=== PATIENT | male | born 1970 | race Caucasian/White ===

== ENCOUNTER 2017-10-15 22:21 | Emergency (ER) | payer MEDICARE, MEDICAID ==
[~2017-10-15] VITALS: Ht 190.5 cm; Wt 117.9 kg
[~2017-10-15 22:21] MED LIST: ALB6.7R INH; ALBU8.5H12 IH; AMOX-362 PO; ANTI10DR13 OT; AZIT500T47 PO; CARI-1 PO; CEFU500T10 PO; CEPH500T7 PO; CIPR-214 PO; CIPR-344 PO; CIPR-345 PO; DIA10 PO; DOCU-416 PO; FURO20TA19 PO; HYDR-4228 PO; HYDR-4309 PO; IBUP800T37 PO; LEVO-85 PO; LISI-346 PO; LISI-362 PO; LISI5TAB25 PO; LOR5/325 PO; METR-1 PO; METR-160 PO; NIT4 SL; ONDA4TAB PO; ONDA4TAB9 PO; ONDA8TAB94 PO; OXYC-865 PO; OXYC-869 PO; PANT40TA65 PO; PER PO; PRED20TA6 PO; PROM-110 PO; SERT25TA87 PO; SIMV-49 PO; TRAM-420 PO
--- NOTE | 2017-10-15 22:32 | ER Report ---
History and Physical Time Seen By MD: 22:32 Hx. of Stated Complaint: patient fell around 3 am this morning and around 4 he started vomited; last time was 2 hours ago HPI/ROS CHIEF COMPLAINT: Ankle injury HISTORY OF PRESENT ILLNESS: This is a 47-year-old male. Earlier this morning he rolled his ankle. He is having swelling and pain lateral foot and ankle with radiation up into his calf. He has been bearing weight but with pain. Pain became worse today and did cause him to vomit a couple of times. No nausea at this time. Has normal sensation and can move the foot and ankle but it does cause increased pain. He does have a prior ankle injury which was in the process of healing which is likely been exacerbated with this injury. REVIEW OF SYSTEMS: No shortness of breath or chest pains. No problems with bowels or bladder function. Allergies: Coded Allergies: metoprolol (Verified Allergy, Mild, Hives, 07/30/17) green tea (Verified Allergy, Unknown, 07/30/17) Home Meds Active Scripts Hydrocodone Bit/Acetaminophen (HYDROCODON-ACETAMINOPHEN 5-325) 1 Each Tablet, 1 EACH PO Q4H Y for PAIN, #6 TAB 0 Refills Prov:ALBERTO ALVAREZ MD 10/15/17 Albuterol Sulfate (PROVENTIL HFA) 6.7 Gm Inh, 2 PUFF INH Q4-6H Y for WHEEZING, # 1 INH 1 Refill Prov:THEO RAI MD 05/25/17 Lisinopril (LISINOPRIL) 5 Mg Tablet, 5 MG PO QDAY, #30 TAB 1 Refill Prov:THEO RAI MD 05/25/17 Reviewed Nurses Notes: Yes Hx Smoking: Yes (1/2PPD) Smoking Status: Current: Every Day Smoker Exposure to Second Hand Smoke?: Yes Hx Substance Use Disorder: No Hx Alcohol Use: Yes Constitutional Vital Sign - Last 24 Hours 10/15/17 10/15/17 10/15/17 10/15/17 22:23 22:25 22:30 22:51 Temp 98.7 Pulse 89 86 Resp 18 B/P (MAP) 132/111 (118) 132/111 106/61 (76) Pulse Ox 96 95 O2 Delivery Room Air 10/15/17 10/15/17 10/15/17 23:00 23:21 23:36 Pulse 81 95 Resp 16 B/P (MAP) 122/84 (97) 126/75 (92) Pulse Ox 95 92 O2 Delivery Room Air Physical Exam General appearance: Patient is alert. No acute distress. Musculoskeletal: Left foot and ankle shows mild lateral swelling. There is no obvious deformity. No bruising. Medial malleolus is non-tender. Lateral malleolus is tender to palpation. Head of the fifth metatarsal is also mildly tender to palpation. No tenderness over the calcaneus. There is some tenderness in the midfoot. Achilles tendon is nontender. No tenderness with squeeze of the lower leg. Weight bearing: Weight bearing not tested due to pain. Neurologic: The patient has normal sensation distal to the injury. Active range of motion is intact, but with pain. Cardiovascular: Normal dorsalis pedis and posterior tibialis pulses. Normal capillary refill. Skin: No rash. No skin breakdown. DIFFERENTIAL DIAGNOSIS: After history and physical exam differential diagnosis was considered for ankle and foot injury including sprain, fracture, dislocation and soft tissue injury. Medical Decision Making EKG/Imaging Imaging LEFT ANKLE: Indication: Injury. Technique: 3 views were obtained. Comparison: None. Findings: There is no evidence of fracture, subluxation, or other acute deformity. There is mild spur formation on the medial and lateral malleoli. There is uniform mineralization of the bony structures. There is mild soft tissue swelling over the lateral malleolus. IMPRESSION: Mild soft tissue swelling. No evidence of fracture or acute skeletal deformity. Report Dictated By: Waylon Easton MD at 10/15/2017 11:16 PM LEFT FOOT: Indication: Injury. Technique: 3 views were obtained. Comparison: None. Findings: There is no evidence of fracture, dislocation, or other acute deformity. There are mild degenerative changes in the mid foot and first MTP joint. There is a small spur on the calcaneus. There is uniform mineralization of the skeletal structures. No soft tissue abnormalities are identified. IMPRESSION: No acute deformity. Report Dictated By: Waylon Easton MD at 10/15/2017 11:19 PM ED Course/Re-evaluation ED Course Reviewed the imaging results with the patient and discussed conservative management of ankle sprain. Decision to Disposition Date: Oct 15, 2017 Decision to Disposition Time: 23:29 Depart Departure Latest Vital Signs Vital Signs Date Time Temp Pulse Resp B/P (MAP) Pulse Ox O2 Delivery O2 Flow Rate FiO2 10/15/17 23:36 95 16 126/75 (92) 92 Room Air 10/15/17 22:25 98.7 Impression: Primary Impression: Ankle sprain Condition: Improved Disposition: HOME OR SELF-CARE New Scripts Hydrocodone Bit/Acetaminophen (HYDROCODON-ACETAMINOPHEN 5-325) 1 Each Tablet 1 EACH PO Q4H Y for PAIN, #6 TAB 0 Refills Prov: ALBERTO ALVAREZ MD 10/15/17 Patient Instructions: Ankle Sprain (ED) Additional Instructions: Ibuprofen 200mg over the counter tablets, take 4 tablets three times a day with food. Lortab 5/325, one every 4 hours as needed for pain. Apply ice 20 minutes every 1-2 hours while awake. An LEANNE wrap can be used for compression to help reduce swelling. Rest the injured area, keep it elevated while at rest. Begin gentle range of motion exercises. Problem Qualifiers Primary Impression: Ankle sprain Encounter type: initial encounter Involved ligament of ankle: unspecified ligament Laterality: left Qualified Codes: S93.402A - Sprain of unspecified ligament of left ankle, initial encounter ALBERTO ALVAREZ MD Oct 15, 2017 22:32
[2017-10-15] MEDS ORDERED: APAP/HYDROCODONE 325/5 TAB PO ONE (22:55)
--- NOTE | 2017-10-15 23:22 | RADIOLOGY IMAGING REPORT ---
FACILITY: [facility] PATIENT NAME: Jaspreet Sosa : 1970 MR: [id number] V: [id number] EXAM DATE: ORDERING PHYSICIAN: ALBERTO ALVAREZ TECHNOLOGIST: Location: [facility] Patient: Jaspreet Sosa : 1970 Visit/Account:[id number] Date of Sevice: 10/15/2017 LEFT ANKLE: Indication: Injury. Technique: 3 views were obtained. Comparison: None. Findings: There is no evidence of fracture, subluxation, or other acute deformity. There is mild spur formation on the medial and lateral malleoli. There is uniform mineralization of the bony structures . There is mild soft tissue swelling over the lateral malleolus. IMPRESSION: Mild soft tissue swelling. No evidence of fracture or acute skeletal deformity. Report Dictated By: Waylon Easton MD at 10/15/2017 11:16 PM Report E-Signed By: Waylon Easton MD at 10/15/2017 11:19 PM [id number]
--- NOTE | 2017-10-15 23:24 | RADIOLOGY IMAGING REPORT ---
[place] [facility] [place] NAME: Jaspreet Sosa : 1970 MR: [id number] V: [id number] EXAM DATE: ORDERING PHYSICIAN: ALBERTO ALVAREZ TECHNOLOGIST: Location: [facility] Patient: Jaspreet Sosa : 1970 Visit/Account:[id number] Date of Sevice: 10/15/2017 LEFT FOOT: Indication: Injury. Technique: 3 views were obtained. Comparison: None. Findings: There is no evidence of fracture, dislocation, or other acute deformity. There are mild deg enerative changes in the mid foot and first MTP joint. There is a small spur on the calcaneus. There is uniform mineralization of the skeletal structures. No soft tissue abnormalities are identified. IMPRESSION: No acute deformity. Report Dictated By: Waylon Easton MD at 10/15/2017 11:19 PM Report E-Signed By: Waylon Easton MD at 10/15/2017 11:21 PM [id number]
[2017-10-15] MEDS ORDERED: LOR5/325 PO (23:30)
[2017-10-15 23:36] VITALS: BP 126/75
== END 2017-10-15 23:36 | disposition home or self-care (01) ==
LOC: ER 22:40
DX: S93.402A Sprain of unspecified ligament of left ankle, initial encounter (principal)
CPT/HCPCS: 73610; 73630; 99282; A9270

== ENCOUNTER 2018-01-13 08:58 | Emergency (ER) | payer MEDICARE, MEDICAID ==
--- NOTE | 2018-01-13 09:31 | ER Report ---
History and Physical Time Seen By MD: 09:15 Hx. of Stated Complaint: pt reports he fell in the yard twice rt to dizziness. pt reports shakiness and headache today HPI/ROS This is a 47-year-old male who presented to the emergency department with a chief complaint of feeling off balance and tremulous. He does drink alcohol daily. States he usually drinks 2-3 beers a day but earlier this week when on a "whiskey binge." He was working in his yard yesterday and felt so off balance that he fell onto his hands and his knees. He did not have any head trauma. He states he has an old closed head injury. Currently has a mild headache. He has not drink any alcohol in 2 days. No other complaints. He is supposed to be taking lisinopril, however he is not compliant with that medication. Does say that he did take it at 3:00 in the morning when he woke up and was feeling tremulous. Allergies: Coded Allergies: metoprolol (Verified Allergy, Mild, Hives, 01/13/18) green tea (Verified Allergy, Unknown, 01/13/18) Home Meds Active Scripts Albuterol Sulfate (PROVENTIL HFA) 6.7 Gm Inh, 2 PUFF INH Q4-6H Y for WHEEZING, # 1 INH 1 Refill Prov:THEO RAI MD 05/25/17 Lisinopril (LISINOPRIL) 5 Mg Tablet, 5 MG PO QDAY, #30 TAB 1 Refill Prov:THEO RAI MD 05/25/17 Discontinued Scripts Hydrocodone Bit/Acetaminophen (HYDROCODON-ACETAMINOPHEN 5-325) 1 Each Tablet, 1 EACH PO Q4H Y for PAIN, #6 TAB 0 Refills Prov:ALBERTO ALVAREZ MD 10/15/17 Reviewed Nurses Notes: Yes Old Medical Records Reviewed: Yes Hx Smoking: Yes (1/2PPD) Smoking Status: Current: Every Day Smoker Exposure to Second Hand Smoke?: Yes Hx Substance Use Disorder: No Hx Alcohol Use: Yes Constitutional Vital Sign - Last 24 Hours 01/13/18 01/13/18 01/13/18 01/13/18 09:00 09:03 09:03 09:05 Temp 98.2 Pulse 95 Resp 16 B/P (MAP) 180/127 203/139 (160) 180/127 (144) Pulse Ox 92 O2 Delivery Room Air O2 Flow Rate 1.0 01/13/18 01/13/18 01/13/18 01/13/18 09:08 09:18 09:28 09:30 Pulse 94 88 87 Resp 36 15 34 B/P (MAP) 163/111 (128) Pulse Ox 93 90 91 01/13/18 01/13/18 01/13/18 01/13/18 09:50 09:58 10:00 10:08 Pulse 88 92 Resp 78 B/P (MAP) 169/120 (136) 156/115 (129) Pulse Ox 89 84 01/13/18 01/13/18 01/13/18 01/13/18 10:13 10:28 10:30 10:35 Pulse 91 87 89 Resp 42 32 B/P (MAP) 162/113 (129) Pulse Ox 86 01/13/18 01/13/18 01/13/18 01/13/18 10:50 11:00 11:05 11:10 Pulse 85 87 87 B/P (MAP) 155/112 (126) 01/13/18 01/13/18 01/13/18 01/13/18 11:25 11:30 11:50 12:00 Pulse 84 81 B/P (MAP) 156/113 (127) 160/114 (129) 01/13/18 01/13/18 12:05 12:20 Pulse 90 84 Intake and Output 01/13/18 01/13/18 01/14/18 15:00 23:00 07:00 Intake Total 1000 ml Balance 1000 ml Physical Exam General Appearance: The patient is alert, has no immediate need for airway protection and no current signs of toxicity. Eyes: Pupils equal and round no injection. Respiratory: Chest is non tender, lungs are clear to auscultation. Cardiac: tachycardic, regular rhythm Gastrointestinal: Abdomen is soft and non tender, no masses, bowel sounds normal. Neck: Neck is supple and non tender. Extremities have full range of motion and are non tender. Skin: Multiple abrasions on his hands/knees at different stages of healing Neuro: tremulous throughout including tongue DIFFERENTIAL DIAGNOSIS: After history and physical exam differential diagnosis was considered for CHI, alcohol withdrawal, infection Medical Decision Making Data Points Result Diagram: 01/13/18 1000 01/13/18 1000 Laboratory Hematology Test 01/13/18 09:53 01/13/18 10:00 Urine Color Yellow Urine Clarity Clear Urine pH 7.0 pH (4.8-9.5) Urine Specific [place] 1.017 Urine Protein Negative mg/dL (NEGATIVE) Urine Glucose (UA) Negative mg/dL (NEGATIVE) Urine Ketones 20 mg/dL (NEGATIVE) Urine Blood Negative (NEGATIVE) Urine Nitrite Negative (NEGATIVE) Urine Bilirubin Negative (NEGATIVE) Urine Urobilinogen 2.0 mg/dL (0.2-1.9) Urine Leukocyte Esterase Negative (NEGATIVE) Urine RBC None /HPF (0-2/HPF) Urine WBC None /HPF (0-5/HPF) Urine Squamous Epithelial Cells None /LPF (</=FEW) Urine Bacteria Negative /HPF (NONE-FEW) Urine Mucus Few /HPF (NONE-FEW) Urine Opiates Screen Negative Urine Barbiturates Screen Negative Ur Tricyclic Antidepressants Screen Negative Urine Phencyclidine Screen Negative Urine Amphetamines Screen Negative Urine Benzodiazepines Screen Negative Urine Cocaine Screen Negative Urine Cannabinoids Screen Positive Red Blood Count 5.24 M/uL (4.00-5.60) Mean Corpuscular Volume 99.8 fL (80.0-96.0) Mean Corpuscular Hemoglobin 34.7 pg (26.0-33.0) Mean Corpuscular Hemoglobin Concent 34.8 g/dL (32.0-36.0) Red Cell Distribution Width 14.2 % (11.5-14.5) Mean Platelet Volume 8.1 fL (7.2-11.1) Neutrophils (%) (Auto) 78.9 % (39.4-72.5) Lymphocytes (%) (Auto) 8.4 % (17.6-49.6) Monocytes (%) (Auto) 11.4 % (4.1-12.4) Eosinophils (%) (Auto) 0.8 % (0.4-6.7) Basophils (%) (Auto) 0.5 % (0.3-1.4) Nucleated RBC Relative Count (auto) 0.1 /100WBC Neutrophils # (Auto) 6.3 K/uL (2.0-7.4) Lymphocytes # (Auto) 0.7 K/uL (1.3-3.6) Monocytes # (Auto) 0.9 K/uL (0.3-1.0) Eosinophils # (Auto) 0.1 K/uL (0.0-0.5) Basophils # (Auto) 0.0 K/uL (0.0-0.1) Nucleated RBC Absolute Count (auto) 0.01 K/uL Sodium Level 137 mmol/L (137-145) Potassium Level 3.7 mmol/L (3.5-5.0) Chloride Level 100 mmol/L (98-107) Carbon Dioxide Level 25 mmol/L (22-30) Blood Urea Nitrogen 7 mg/dl (9-21) Creatinine 0.80 mg/dl (0.66-1.25) Glomerular Filtration Rate Calc > 60.0 Random Glucose 109 mg/dl (75-110) Calcium Level 9.2 mg/dl (8.4-10.2) Magnesium Level 1.8 mg/dl (1.7-2.2) Total Bilirubin 1.4 mg/dl (0.2-1.3) Aspartate Amino Transf (AST/SGOT) 178 U/L (0-35) Alanine Aminotransferase (ALT/SGPT) 129 U/L (0-56) Alkaline Phosphatase 164 U/L (0-126) Ammonia < 9 UMOL/L (9-33) Troponin I < 0.012 ng/ml Total Protein 6.5 gm/dl (6.3-8.2) Albumin 4.1 g/dl (3.5-5.0) Lipase 232 U/L (23-300) Serum Alcohol < 10 mg/dl Chemistry Test 01/13/18 09:53 01/13/18 10:00 Urine Color Yellow Urine Clarity Clear Urine pH 7.0 pH (4.8-9.5) Urine Specific [place] 1.017 Urine Protein Negative mg/dL (NEGATIVE) Urine Glucose (UA) Negative mg/dL (NEGATIVE) Urine Ketones 20 mg/dL (NEGATIVE) Urine Blood Negative (NEGATIVE) Urine Nitrite Negative (NEGATIVE) Urine Bilirubin Negative (NEGATIVE) Urine Urobilinogen 2.0 mg/dL (0.2-1.9) Urine Leukocyte Esterase Negative (NEGATIVE) Urine RBC None /HPF (0-2/HPF) Urine WBC None /HPF (0-5/HPF) Urine Squamous Epithelial Cells None /LPF (</=FEW) Urine Bacteria Negative /HPF (NONE-FEW) Urine Mucus Few /HPF (NONE-FEW) Urine Opiates Screen Negative Urine Barbiturates Screen Negative Ur Tricyclic Antidepressants Screen Negative Urine Phencyclidine Screen Negative Urine Amphetamines Screen Negative Urine Benzodiazepines Screen Negative Urine Cocaine Screen Negative Urine Cannabinoids Screen Positive White Blood Count 8.0 k/uL (4.5-11.0) Red Blood Count 5.24 M/uL (4.00-5.60) Hemoglobin 18.2 g/dL (14.0-18.0) Hematocrit 52.3 % (42.0-52.0) Mean Corpuscular Volume 99.8 fL (80.0-96.0) Mean Corpuscular Hemoglobin 34.7 pg (26.0-33.0) Mean Corpuscular Hemoglobin Concent 34.8 g/dL (32.0-36.0) Red Cell Distribution Width 14.2 % (11.5-14.5) Platelet Count 133 K/uL (150-450) Mean Platelet Volume 8.1 fL (7.2-11.1) Neutrophils (%) (Auto) 78.9 % (39.4-72.5) Lymphocytes (%) (Auto) 8.4 % (17.6-49.6) Monocytes (%) (Auto) 11.4 % (4.1-12.4) Eosinophils (%) (Auto) 0.8 % (0.4-6.7) Basophils (%) (Auto) 0.5 % (0.3-1.4) Nucleated RBC Relative Count (auto) 0.1 /100WBC Neutrophils # (Auto) 6.3 K/uL (2.0-7.4) Lymphocytes # (Auto) 0.7 K/uL (1.3-3.6) Monocytes # (Auto) 0.9 K/uL (0.3-1.0) Eosinophils # (Auto) 0.1 K/uL (0.0-0.5) Basophils # (Auto) 0.0 K/uL (0.0-0.1) Nucleated RBC Absolute Count (auto) 0.01 K/uL Glomerular Filtration Rate Calc > 60.0 Calcium Level 9.2 mg/dl (8.4-10.2) Magnesium Level 1.8 mg/dl (1.7-2.2) Total Bilirubin 1.4 mg/dl (0.2-1.3) Aspartate Amino Transf (AST/SGOT) 178 U/L (0-35) Alanine Aminotransferase (ALT/SGPT) 129 U/L (0-56) Alkaline Phosphatase 164 U/L (0-126) Ammonia < 9 UMOL/L (9-33) Troponin I < 0.012 ng/ml Total Protein 6.5 gm/dl (6.3-8.2) Albumin 4.1 g/dl (3.5-5.0) Lipase 232 U/L (23-300) Serum Alcohol < 10 mg/dl Toxicology Test 01/13/18 09:53 01/13/18 10:00 Urine Opiates Screen Negative Urine Barbiturates Screen Negative Ur Tricyclic Antidepressants Screen Negative Urine Phencyclidine Screen Negative Urine Amphetamines Screen Negative Urine Benzodiazepines Screen Negative Urine Cocaine Screen Negative Urine Cannabinoids Screen Positive Serum Alcohol < 10 mg/dl Urinalysis Test 01/13/18 09:53 Urine Color Yellow Urine Clarity Clear Urine pH 7.0 pH (4.8-9.5) Urine Specific [place] 1.017 Urine Protein Negative mg/dL (NEGATIVE) Urine Glucose (UA) Negative mg/dL (NEGATIVE) Urine Ketones 20 mg/dL (NEGATIVE) Urine Blood Negative (NEGATIVE) Urine Nitrite Negative (NEGATIVE) Urine Bilirubin Negative (NEGATIVE) Urine Urobilinogen 2.0 mg/dL (0.2-1.9) Urine Leukocyte Esterase Negative (NEGATIVE) Urine RBC None /HPF (0-2/HPF) Urine WBC None /HPF (0-5/HPF) Urine Squamous Epithelial Cells None /LPF (</=FEW) Urine Bacteria Negative /HPF (NONE-FEW) Urine Mucus Few /HPF (NONE-FEW) EKG/Imaging Monitor Interpretation: Sinus Tachycardia ED Course/Re-evaluation Clinical Indication for ER IV: Hydration ED Course This is a 47-year-old male who presents to the ED feeling off balance, with 2 falls yesterday to his hands and knees, and feeling tremulous. He does admit to drinking alcohol daily, but I think he is minimizing the quantity of alcohol he drinks daily. He states that he did drink whiskey heavily earlier this week, and has not drink any alcohol in the past 36 hours. He has never had DTs. He fell onto his hands and knees twice yesterday, but given his alcohol history I obtained a CT scan of his head. No acute changes on his CT scan. He was given a banana bag, IV Ativan, and he Valium. His tremulous has markedly improved. He states that he feels much better and does not feel off balance any longer. Noted is significant transaminitis. He has no abdominal pain or tenderness to palpation. I discussed this with the patient, and told him that his elevated liver enzymes are likely a result of his heavy alcohol use. He does not think he needs inpatient alcohol detox at this time. I counseled him that he needs to seek treatment as an outpatient for his alcohol abuse. He voiced understanding. Decision to Disposition Date: January 13, 2018 Decision to Disposition Time: 13:11 Depart Departure Latest Vital Signs Vital Signs Date Time Temp Pulse Resp B/P (MAP) Pulse Ox O2 Delivery O2 Flow Rate FiO2 01/13/18 12:20 84 01/13/18 12:00 160/114 (129) 01/13/18 10:35 32 01/13/18 10:13 86 01/13/18 09:03 98.2 Room Air 01/13/18 09:00 1.0 Impression: Primary Impression: Alcohol withdrawal Condition: Improved Disposition: HOME OR SELF-CARE Patient Instructions: Alcohol Dependence (ED) Problem Qualifiers Primary Impression: Alcohol withdrawal Complication of substance-induced condition: with unspecified complication Qualified Codes: F10.239 - Alcohol dependence with withdrawal, unspecified LA VARGAS MD January 13, 2018 09:31
[2018-01-13] MEDS ORDERED: MULTIVITAMINS(*) 10 ML VIAL 10 ML, THIAMINE HCL(*) 200 MG/2 ML IN 100 MG, FOLIC ACID(*)... IV ONE (09:40)
[2018-01-13] MEDS ORDERED: LORazepam 2 MG/ML VIAL IVP ONE (09:40)
[2018-01-13] MEDS ORDERED: MAGNESIUM SUL 50% 1GM/2ML VIAL ONE (09:48)
[2018-01-13] MEDS ORDERED: THIAMINE HCL 200 MG/2 ML INJ ONE (09:48)
--- NOTE | 2018-01-13 09:58 | EKG ---
FACILITY: [facility] [place] PATIENT NAME: CHERYL URBAN : [id number] MR: [id number] V: [id number] EXAM DATE: ORDERING PHYSICIAN: LA VARGAS TECHNOLOGIST: CHUCHO Tavares Reason : ELECTROLYTE INBALENC Blood Pressure : / mmHG Vent. Rate : 090 BPM Atrial Rate : 090 BPM P-R Int : 164 ms QRS Dur : 098 ms QT Int : 360 ms P-R-T Axes : 054 -29 001 degrees QTc Int : 440 ms Normal sinus rhythm Possible Left atrial enlargement ST and T wave abnormality, consider anterior ischemia T flatteing consistent with inferior ischemia vs normal variant Relatively unchanged from previous Confirmed by SHELTON HOLGUIN ([id number]) on 01/13/2018 3:07:02 PM Referred By: SAM Confirmed By:SHELTON HOLGUIN
[2018-01-13] MEDS ORDERED: MULTIVITAMINS 10 ML VIAL IV ONE (10:01)
[2018-01-13 10:19] LABS: PLATELET COUNT, AUTOMATED 133 K/uL (150-450)
--- NOTE | 2018-01-13 10:55 | RADIOLOGY IMAGING REPORT ---
FACILITY: [facility] PATIENT NAME: Jaspreet Sosa : 1970 MR: [id number] V: [id number] EXAM DATE: ORDERING PHYSICIAN: AL VARGAS TECHNOLOGIST: Location: [facility] Patient: Jaspreet Sosa : 1970 Visit/Account:[id number] Date of Sevice: 01/13/2018 HEAD W/O CONTRAST Provided history: alcoholic with 2 falls yesterday and off balance Additional pertinent history: none TECHNIQUE: Imaging was obtained from the skull base through the vertex without intravenous contrast. Source images were reformatted in the coronal sagittal planes. One of the following dose optimization techniques was utilized in the performance of this exam: Autom ated exposure control; adjustment of the mA and/or kV according to the patient's size; or use of an i terative reconstruction technique. Specific details can be referenced in the facility's radiology CT exam operational policy. COMPARISON STUDIES: 02/29/16 FINDINGS: Brain volume: Normal Acute cortical ischemia: None Chronic cortical and ganglionic ischemia: none significant Hemorrhage: None Masses / edema: None White matter: Normal Vessels: Normal Extra-axial: None significant Calvarium / scalp: Negative Skull base: Absent air cell development of the right mastoid tip from old inflammatory disease. No acute middle ear disease. Visualized sinuses / orbits: Moderate mildly lobular mucosal thickening left axillary sinus is new f rom prior. Mild thickening in the right antrum is also new. No air-fluid levels. IMPRESSION: Normal CT of the brain. No evidence of mass, acute ischemia or hemorrhage. Paranasal sinus disease is progressive from last exam. No air-fluid levels. Report Dictated By: Waylon Cm MD at 01/13/2018 10:46 AM Report E-Signed By: Waylon Cm MD at 01/13/2018 10:50 AM WSN:[id number]
[2018-01-13 12:50] VITALS: BP 178/117
[2018-01-13] MEDS ORDERED: DIAZEPAM 5 MG TAB PO ONE (13:00)
== END 2018-01-13 13:15 | disposition home or self-care (01) ==
LOC: ER 08:58
DX: F10.239 Alcohol dependence with withdrawal, unspecified (principal); F17.210 Nicotine dependence, cigarettes, uncomplicated
CPT/HCPCS: 70450; 80305; 81001; 82140; 83690; 83735; 84484; 85025; 96365; 96375; 99284; A9270; G0480; J2060; J3411; J3475; J7030; 80320; 82040; 82247; 82310; 82374; 82435; 82565; 82947; 84075; 84132; 84155; 84295; 84450; 84460; 84520

== ENCOUNTER → 2018-04-23 | Outpatient (CLI) | payer MEDICARE | LOC: RESP 19:45 | PROVIDERS: ATTEND Nurse Practitioner Psychiatric/Mental Health | DX: G47.33 Obstructive sleep apnea (adult) (pediatric) (principal); G47.61 Periodic limb movement disorder; G47.36 Sleep related hypoventilation in conditions classified elsewhere ==

== ENCOUNTER → 2018-06-17 | Outpatient (CLI) | payer MEDICARE ==
[~2018-06-17] MED LIST changes: -HYDR-4309 PO; +HYDR-653 PO
== END ==
LOC: RESP 20:34
PROVIDERS: ATTEND Nurse Practitioner Psychiatric/Mental Health
DX: G47.33 Obstructive sleep apnea (adult) (pediatric) (principal); G47.36 Sleep related hypoventilation in conditions classified elsewhere; G47.61 Periodic limb movement disorder

== ENCOUNTER 2018-12-29 22:15 | Emergency (ER) | payer MEDICARE, MEDICAID ==
[~2018-12-29 22:15] MED LIST changes: -METR-160 PO; +METR500T15 PO
[2018-12-29] MEDS ORDERED: GABA-549 PO (22:22)
[2018-12-29] MEDS ORDERED: LISI-351 PO (22:22)
--- NOTE | 2018-12-29 22:29 | ER Report ---
History and Physical Time Seen By MD: 22:29 Hx. of Stated Complaint: PT REPORTS PAIN IN RIGHT CALF FOR LAST MONTH. PT REPORTS PAIN HAS GONE UP TO RIGHT THIGH AND GOTTEN INCREASINGLY WORSE LAST FEW DAY. HPI/ROS CHIEF COMPLAINT: right leg pain HISTORY OF PRESENT ILLNESS: This is a 48 year old male. He has been having some pain in the right leg, was in the calf, now up in thigh. No injury noted. Some mild swelling associated. No shortness of breath or cough. No history of blood clots in the past. Normal sensation. Allergies: Coded Allergies: metoprolol (Verified Allergy, Mild, Hives, 12/29/18) green tea (Verified Allergy, Unknown, 12/29/18) Home Meds Active Scripts Albuterol Sulfate (PROVENTIL HFA) 6.7 Gm Inh, 2 PUFF INH Q4-6H PRN for WHEEZING, #1 INH 1 Refill Prov:THEO RAI MD 05/25/17 Reported Medications Gabapentin (GABAPENTIN) 300 Mg Capsule, 300 MG PO HS, CAPSULE 12/29/18 Lisinopril/Hydrochlorothiazide (LISINOPRIL-HCTZ 10-12.5 MG TAB) 1 Each Tablet, 1 EACH PO QDAY 12/29/18 Discontinued Scripts Lisinopril (LISINOPRIL) 5 Mg Tablet, 5 MG PO QDAY, #30 TAB 1 Refill Prov:THEO RAI MD 05/25/17 Reviewed Nurses Notes: Yes Hx Smoking: Yes (1/2PPD) Smoking Status: Current: Every Day Smoker Exposure to Second Hand Smoke?: Yes Hx Substance Use Disorder: No Hx Alcohol Use: Yes Constitutional Vital Sign - Last 24 Hours 12/29/18 12/29/18 12/29/18 12/29/18 22:15 22:19 22:20 22:30 Temp 98.6 Pulse 100 86 90 Resp 18 B/P (MAP) 108/71 108/71 (83) 95/59 (71) Pulse Ox 92 88 88 O2 Delivery Room Air 12/29/18 12/29/18 12/30/18 12/30/18 23:00 23:30 00:00 00:30 B/P (MAP) 95/64 (74) 104/70 (81) 117/80 (92) 101/84 (90) 12/30/18 01:00 B/P (MAP) 111/76 (88) Intake and Output 12/29/18 12/29/18 12/30/18 14:59 22:59 06:59 Intake Total 1000 ml Balance 1000 ml Physical Exam General Appearance: Alert, no distress. Respiratory: Lungs are clear to auscultation. Cardiac: regular rate and rhythm, normal peripheral pulses and cap refill. Neuro: Normal sensation. Musculoskeletal: No pain in calf. No pain in thigh. Skin: No rashes or lesions. No warmth or redness of the skin noted. DIFFERENTIAL DIAGNOSIS: After history and physical exam differential diagnosis was considered for leg pain, will need to check for blood clots or infection. Medical Decision Making Data Points Result Diagram: 12/29/18225112/29/182251 Laboratory Hematology Test 12/29/18 22:52 Red Blood Count 4.48 M/uL (4.00-5.60) Mean Corpuscular Volume 101.5 fL (80.0-96.0) Mean Corpuscular Hemoglobin 34.7 pg (26.0-33.0) Mean Corpuscular Hemoglobin Concent 34.1 g/dL (32.0-36.0) Red Cell Distribution Width 14.9 % (11.5-14.5) Mean Platelet Volume 7.7 fL (7.2-11.1) Neutrophils (%) (Auto) 61.4 % (39.4-72.5) Lymphocytes (%) (Auto) 22.1 % (17.6-49.6) Monocytes (%) (Auto) 12.6 % (4.1-12.4) Eosinophils (%) (Auto) 3.3 % (0.4-6.7) Basophils (%) (Auto) 0.6 % (0.3-1.4) Nucleated RBC Relative Count (auto) 0.1 /100WBC Neutrophils # (Auto) 2.3 K/uL (2.0-7.4) Lymphocytes # (Auto) 0.8 K/uL (1.3-3.6) Monocytes # (Auto) 0.5 K/uL (0.3-1.0) Eosinophils # (Auto) 0.1 K/uL (0.0-0.5) Basophils # (Auto) 0.0 K/uL (0.0-0.1) Nucleated RBC Absolute Count (auto) 0.00 K/uL Erythrocyte Sedimentation Rate 1 mm/HOUR (0-15) Prothrombin Time 12.7 seconds (12.0-14.4) Prothromb Time International Ratio 0.95 Activated Partial Thromboplast Time 30 seconds (23-35) Sodium Level 130 mmol/L (137-145) Potassium Level 3.8 mmol/L (3.5-5.0) Chloride Level 91 mmol/L (98-107) Carbon Dioxide Level 29 mmol/L (22-30) Blood Urea Nitrogen 18 mg/dl (9-21) Creatinine 1.60 mg/dl (0.66-1.25) Glomerular Filtration Rate Calc 46.4 Random Glucose 96 mg/dl (75-110) Calcium Level 8.6 mg/dl (8.4-10.2) Total Bilirubin 0.8 mg/dl (0.2-1.3) Aspartate Amino Transf (AST/SGOT) 273 U/L (0-35) Alanine Aminotransferase (ALT/SGPT) 164 U/L (0-56) Alkaline Phosphatase 103 U/L (0-126) Total Protein 6.7 g/dl (6.3-8.2) Albumin 4.1 g/dl (3.5-5.0) Chemistry Test 12/29/18 22:52 White Blood Count 3.7 k/uL (4.5-11.0) Red Blood Count 4.48 M/uL (4.00-5.60) Hemoglobin 15.5 g/dL (14.0-18.0) Hematocrit 45.5 % (42.0-52.0) Mean Corpuscular Volume 101.5 fL (80.0-96.0) Mean Corpuscular Hemoglobin 34.7 pg (26.0-33.0) Mean Corpuscular Hemoglobin Concent 34.1 g/dL (32.0-36.0) Red Cell Distribution Width 14.9 % (11.5-14.5) Platelet Count 119 K/uL (150-450) Mean Platelet Volume 7.7 fL (7.2-11.1) Neutrophils (%) (Auto) 61.4 % (39.4-72.5) Lymphocytes (%) (Auto) 22.1 % (17.6-49.6) Monocytes (%) (Auto) 12.6 % (4.1-12.4) Eosinophils (%) (Auto) 3.3 % (0.4-6.7) Basophils (%) (Auto) 0.6 % (0.3-1.4) Nucleated RBC Relative Count (auto) 0.1 /100WBC Neutrophils # (Auto) 2.3 K/uL (2.0-7.4) Lymphocytes # (Auto) 0.8 K/uL (1.3-3.6) Monocytes # (Auto) 0.5 K/uL (0.3-1.0) Eosinophils # (Auto) 0.1 K/uL (0.0-0.5) Basophils # (Auto) 0.0 K/uL (0.0-0.1) Nucleated RBC Absolute Count (auto) 0.00 K/uL Erythrocyte Sedimentation Rate 1 mm/HOUR (0-15) Prothrombin Time 12.7 seconds (12.0-14.4) Prothromb Time International Ratio 0.95 Activated Partial Thromboplast Time 30 seconds (23-35) Glomerular Filtration Rate Calc 46.4 Calcium Level 8.6 mg/dl (8.4-10.2) Total Bilirubin 0.8 mg/dl (0.2-1.3) Aspartate Amino Transf (AST/SGOT) 273 U/L (0-35) Alanine Aminotransferase (ALT/SGPT) 164 U/L (0-56) Alkaline Phosphatase 103 U/L (0-126) Total Protein 6.7 g/dl (6.3-8.2) Albumin 4.1 g/dl (3.5-5.0) Coagulation Test 12/29/18 22:52 Prothrombin Time 12.7 seconds Prothromb Time International Ratio 0.95 Activated Partial Thromboplast Time 30 seconds EKG/Imaging Imaging US VENOUS LOWER EXT RT HISTORY: Right leg pain and swelling ADDITIONAL HISTORY: None. COMPARISON: None. FINDINGS: Grayscale, duplex and color Doppler interrogation of the right lower extremity deep veins from common femoral vein to proximal calf was completed. Common femoral vein: Negative. Femoral vein: Negative. Deep femoral vein: Negative. Popliteal vein: Negative. Visualized deep calf veins: Negative. Popliteal fossa: Negative. Greater saphenous vein in the proximal thigh: Negative. IMPRESSION: Negative for deep venous thrombosis within the right lower extremity Report Dictated By: Navneet Mustafa at 12/30/2018 12:26 AM ED Course/Re-evaluation Clinical Indication for ER IV: Hydration, IV Access ED Course Has mild hyponatremia and some dehydration. NS bolus given. Ultrasound negative. Decision to Disposition Date: December 30, 2018 Decision to Disposition Time: 00:39 Depart Departure Latest Vital Signs Vital Signs Date Time Temp Pulse Resp B/P (MAP) Pulse Ox O2 Delivery O2 Flow Rate FiO2 12/30/18 01:00 111/76 (88) 12/29/18 22:30 90 88 12/29/18 22:19 98.6 18 Room Air Impression: Primary Impression: Right leg pain Additional Impressions: Hyponatremia Dehydration Elevated liver enzymes Condition: Improved Disposition: HOME OR SELF-CARE Patient Instructions: Hyponatremia (ED), Musculoskeletal Pain (ED) Additional Instructions: You were a little dehydrated and sodium was a little low. The IV fluids given tonight should help with this. We recommend increasing fluid intake. Liver enzymes are still a little elevated and you should follow-up with your regular doctor to monitor this. No signs of blood clots in the leg. If pain persists, follow-up with primary care or with orthopedic surgery for further evaluation. Problem Qualifiers ALBERTO ALVAREZ MD December 29, 2018 22:29
[2018-12-29 23:03] LABS: PLATELET COUNT, AUTOMATED 119 K/uL (150-450)
[2018-12-29 23:20] LABS: INR 0.95
--- NOTE | 2018-12-30 00:30 | RADIOLOGY IMAGING REPORT ---
FAC[facility]: [facility] PATIENT NAME: Jaspreet Sosa : 1970 MR: [id number] V: [id number] EXAM DATE: ORDERING PHYSICIAN: ALBERTO ALVAREZ TECHNOLOGIST: Location: [facility] Patient: Jaspreet Sosa : 1970 Visit/Account:[id number] Date of Sevice: 12/29/2018 VENOUS LOWER EXT RT HISTORY: Right leg pain and swelling ADDITIONAL HISTORY: None. COMPARISON: None. FINDINGS: Grayscale, duplex and color Doppler interrogation of the right lower extremity deep veins from common femoral vein to proximal calf was completed. Common femoral vein: Negative. Femoral vein: Negative. Deep femoral vein: Negative. Popliteal vein: Negative. Visualized deep calf veins: Negative. Popliteal fossa: Negative. Greater saphenous vein in the proximal thigh: Negative. IMPRESSION: Negative for deep venous thrombosis within the right lower extremity Report Dictated By: Navneet Mustafa at 12/30/2018 12:26 AM Report E-Signed By: Navneet Mustafa at 12/30/2018 12:27 AM WSN:[id number]
[2018-12-30] MEDS ORDERED: NS(*) 0.9% 1000 ML BAG 1,000 ML IV ONE (00:35)
[2018-12-30 01:00] VITALS: BP 111/76
== END 2018-12-30 01:22 | disposition home or self-care (01) ==
LOC: ER 23:08
DX: M79.604 Pain in right leg (principal); E87.1 Hypo-osmolality and hyponatremia; E86.0 Dehydration
CPT/HCPCS: 85025; 85610; 85651; 85730; 93971; 96360; 99284; J7030; 82040; 82247; 82310; 82374; 82435; 82565; 82947; 84075; 84132; 84155; 84295; 84450; 84460; 84520

== ENCOUNTER 2019-01-08 12:26 | Inpatient (IN) | payer MEDICARE, MEDICAID ==
[2019-01-08] VITALS (27 sets, daily range): BP systolic 72–125; BP diastolic 48–104
[~2019-01-08] VITALS: Ht 182.9 cm; Wt 122.5 kg
[~2019-01-08 12:26] MED LIST changes: +GABA-549 PO; +LISI-351 PO
--- NOTE | 2019-01-08 12:30 | ER Report ---
History and Physical Time Seen By MD: 12:29 HPI/ROS CHIEF COMPLAINT: Seizure, bleeding from tongue HISTORY OF PRESENT ILLNESS: Patient is a 48-year-old male here with complaints of a witnessed seizure episode and bleeding from his tongue after biting during seizure activity. Patient had significant edema of the tongue after the seizure activity. 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 Patient has been evaluated by neurology in the past year. Patient was alert and oriented at time of initial evaluation. Patient's reports that he did used to drink significant quantities of alcohol in the last year however recently has switched over to twisted tea. Denies recent trauma, fevers or chills. REVIEW OF SYSTEMS: Constitutional: No fever, no chills. Eyes: No discharge. ENT: Significant tongue edema with scant active bleeding Cardiovascular: No chest pain, no palpitations. Respiratory: No cough, no shortness of breath. Gastrointestinal: No abdominal pain, no vomiting. Genitourinary: No hematuria. Musculoskeletal: No back pain. Skin: No rashes. Neurological: No headache. Allergies: Coded Allergies: metoprolol (Verified Allergy, Mild, Hives, 12/29/18) green tea (Verified Allergy, Unknown, 12/29/18) Home Meds Active Scripts Albuterol Sulfate (PROVENTIL HFA) 6.7 Gm Inh, 2 PUFF INH Q4-6H PRN for WHEEZING, #1 INH 1 Refill Prov:THEO MOCK MD 05/25/17 Reported Medications Gabapentin (GABAPENTIN) 300 Mg Capsule, 300 MG PO HS, CAPSULE 12/29/18 Lisinopril/Hydrochlorothiazide (LISINOPRIL-HCTZ 10-12.5 MG TAB) 1 Each Tablet, 1 EACH PO QDAY 12/29/18 Hx Smoking: Yes (1/2PPD) Smoking Status: Current: Every Day Smoker Exposure to Second Hand Smoke?: Yes Hx Substance Use Disorder: No Hx Alcohol Use: Yes Constitutional Vital Sign - Last 24 Hours 01/08/19 01/08/19 01/08/19 01/08/19 12:26 12:29 12:30 12:41 Temp 99.3 Pulse ??? 106 109 Resp 18 30 B/P (MAP) 160/119 (133) 160/119 Pulse Ox 93 94 O2 Delivery Room Air 5/08/1701/08/19 01/08/19 01/08/19 12:56 13:00 13:11 13:26 Pulse 112 111 110 Resp 45 23 B/P (MAP) 136/107 (117) Pulse Ox 90 86 01/08/19 01/08/19 01/08/19 01/08/19 13:30 13:55 13:57 14:00 Pulse 115 B/P (MAP) 217/164 (181) 209/162 (178) FiO2 80.0 01/08/19 01/08/19 01/08/19 01/08/19 14:05 14:10 14:13 14:20 B/P (MAP) 191/144 (160) 157/137 (144) 156/122 (133) 149/115 (126) 01/08/19 01/08/19 01/08/19 01/08/19 14:25 14:30 14:30 14:35 B/P (MAP) 173/137 (149) 143/111 (122) 157/122 (134) FiO2 60.0 01/08/19 01/08/19 01/08/19 01/08/19 14:40 14:45 14:50 14:55 B/P (MAP) 152/121 (131) 162/130 (141) 182/142 (155) ???/??? (1665) 01/08/19 01/08/19 01/08/19 01/08/19 15:05 15:10 15:15 15:20 B/P (MAP) 174/138 (150) 181/138 (152) 188/142 (157) 178/139 (152) 01/08/19 15:25 B/P (MAP) 147/113 (124) Physical Exam General Appearance: The patient is alert, has no immediate need for airway protection and no signs of toxicity. Uncomfortable appearing, difficulty clearing secretions Eyes: Pupils equal and round no pallor or injection. ENT, Mouth: Significant tongue edema with small puncture lacerations to the tongue with oozing bleeding, no stridor Respiratory: There are no retractions, + crackles at bases bilaterally without stridor Cardiovascular: Regular rate and rhythm. Gastrointestinal: Abdomen is soft and distended, no masses, bowel sounds normal. Neurological: Alert and oriented, moving all extremities spontaneously, anxious appearing Skin: Warm and dry, no rashes. Musculoskeletal: Neck is supple non tender. Extremities are nontender, nonswollen and have full range of motion. DIFFERENTIAL DIAGNOSIS: After history and physical exam differential diagnosis was considered for a seizure including but not limited to electrolyte abnormality, alcohol withdrawal, medication noncompliance, head injury, and breakthrough seizure. Medical Decision Making Data Points Result Diagram: 01/08/19 1557 01/08/19 1557 Laboratory Hematology Test 01/08/19 12:54 Prothrombin Time 12.7 seconds (12.0-14.4) Prothromb Time International Ratio 0.95 Activated Partial Thromboplast Time 29 seconds (23-35) Blood Gas Patient Temperature 99.3 DEGREES Venous Blood pH 7.45 (7.31-7.41) Venous Blood Partial Pressure CO2 38 mmHg Venous Blood Partial Pressure O2 < 35 mmHg Venous Blood HCO3 26 mmol/L Venous Blood Oxygen Saturation 63 % Venous Blood Base Excess 2 mmol/L Oxygen Liters/Minute Room air Magnesium Level 1.7 mg/dl (1.7-2.2) Total Creatine Kinase 240 U/L (55-170) Chemistry Test 01/08/19 12:54 Prothrombin Time 12.7 seconds (12.0-14.4) Prothromb Time International Ratio 0.95 Activated Partial Thromboplast Time 29 seconds (23-35) Blood Gas Patient Temperature 99.3 DEGREES Venous Blood pH 7.45 (7.31-7.41) Venous Blood Partial Pressure CO2 38 mmHg Venous Blood Partial Pressure O2 < 35 mmHg Venous Blood HCO3 26 mmol/L Venous Blood Oxygen Saturation 63 % Venous Blood Base Excess 2 mmol/L Oxygen Liters/Minute Room air Magnesium Level 1.7 mg/dl (1.7-2.2) Total Creatine Kinase 240 U/L (55-170) Coagulation Test 01/08/19 12:54 Prothrombin Time 12.7 seconds Prothromb Time International Ratio 0.95 Activated Partial Thromboplast Time 29 seconds EKG/Imaging EKG Interpretation FACILITY: [facility] [place] PATIENT NAME: CHERYL SOSA : [id number] MR: [id number] V: [id number] EXAM DATE: ORDERING PHYSICIAN: SHIMON FONG TECHNOLOGIST: Test Reason : Blood Pressure : / mmHG Vent. Rate : 104 BPM Atrial Rate : 104 BPM P-R Int : 150 ms QRS Dur : 100 ms QT Int : 354 ms P-R-T Axes : 033 -43 038 degrees QTc Int : 465 ms Sinus tachycardia Left axis deviation Abnormal ECG When compared with ECG of 13-JAN-2018 09:53, Nonspecific T wave abnormality, improved in Inferior leads T wave inversion no longer evident in Anterior leads Referred By: Confirmed By: Imaging Location: [facility] [place] Patient: Cheryl Sosa : 1970 Visit/Account:[id number] Date of Sevice: 01/08/2019 CT BRAIN NO CONTRAST HISTORY: seizure COMPARISON STUDIES: CT scan of the brain January 13, 2018. TECHNIQUE: Contiguous axial images were obtained from the skull base to the vertex. One of the following dose optimization techniques was utilized in the performance of this exam: Automated exposure control; adjustment of the mA and/or kV according to the patient's size; or use of an iterative reconstructio n technique. Specific details can be referenced in the facility's radiology CT exam operational policy. FINDINGS: Hemorrhage: There is no intraparenchymal or extra-axial mass or bleed. Ventricles / sulci / fissures: The ventricles and sulci are normal in terms of size and configuration for a patient of this stated age. Masses / midline shift: Negative White matter and delong matter: No findings of lucency. Extra-axial spaces: Negative Bones/skull base: Negative Visualized mastoid air cells / paranasal sinuses: There is mild mucosal thickening involving the ethmoid air cells and maxillary sinuses. There are perhaps fluid levels in the nasopharynx related to secretions in this patient with gastric and pulmonary intubation. Scalp and soft tissues: Negative. Other findings: Endotracheal tube and orogastric tube are noted. IMPRESSION: Unremarkable CT scan of the brain. No findings of a mass or bleed. 2. Orogastric tube and endotracheal tube is described above. PATIENT NAME: Cheryl Sosa : 1970 MR: [id number] V: [id number] EXAM DATE: [id number] ORDERING PHYSICIAN: SHIMON FONG TECHNOLOGIST: Location: [facility] [place] Patient: Cheryl Sosa : 1970 Visit/Account:[id number] Date of Sevice: 01/08/2019 Examination: CHEST SINGLE AP Comparison: Same day and earlier. History: post intubation Findings: The tip of the endotracheal tube is at or above the level of the thoracic outlet and approximately 12-13 cm above the nasir. Tip of the enteric tube is at the expected level of the gastroesophageal junction. Cardiac and hilar contour size is prominent but unchanged. Questionable increased vascular congestion but no definite evidence of edema. No consolidation. No pneumothorax. The left costophrenic angle is excluded from this study. Visualized bowel gas pattern is within normal limits. Osseous structures are intact. IMPRESSION: 1. Support equipment as described above. 2. Questionable increased vascular congestion but no definite evidence of edema. Results were discussed with SHIMON FONG at 01/08/2019 2:50 PM. PATIENT NAME: Cehryl Sosa : 1970 MR: [id number] V: [id number] EXAM DATE: ORDERING PHYSICIAN: SHIMON FONG TECHNOLOGIST: Location: [facility] [place] Patient: Cheryl Sosa : 1970 Visit/Account:[id number] Date of Sevice: 01/08/2019 EXAMINATION: Chest radiograph HISTORY: Respiratory distress COMPARISON: May 24, 2017 FINDINGS: Frontal view obtained. Lines/tubes: None. Cardiomediastinal silhouette: Normal. Lungs/pleura: Unchanged blunting of the left costophrenic angle. Otherwise unremarkable. Bony structures/chest wall: Unchanged slight convexity left scoliosis. IMPRESSION: 1. Unchanged left costophrenic angle blunting. 2. No apparent acute finding. PATIENT NAME: Cheryl Sosa : 1970 MR: [id number] V: [id number] EXAM DATE: [id number] ORDERING PHYSICIAN: SHIMON FONG TECHNOLOGIST: Location: [facility] [place] Patient: Cheryl Sosa : 1970 Visit/Account:[id number] Date of Sevice: 01/08/2019 EXAMINATION: Soft tissue neck radiographs HISTORY: Shortness of breath, tongue swelling COMPARISON: None. FINDINGS: Frontal and lateral views obtained. The visible lungs are clear. Normal prevertebral soft tissues. No definitive epiglottis enlargement. No apparent neck soft tissue abnormality. Normal osseous structures. IMPRESSION: No apparent neck soft tissue abnormality. ED Course/Re-evaluation ED Course Patient is a 48-year-old male here status post seizure with tongue biting and active bleeding from the tongue with tongue edema partially obstructing the patient's airway. 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 Patient is not currently on anticonvulsants but per patient's 's report he was feeling unwell for the past several days. Patient was alert and oriented at time of evaluation, un comfortable appearing, having difficulty clearing secretions. Patient subsequently had a repeat seizure and was given Ativan 2 mg at which time the patient was unable to protect his airway prompting endotracheal intubation using a glydescope. Patient was administered ketamine, succinylcholine for rapid sequence intubation. Patient was also initially given Solu-Medrol, normal saline bolus for hydration. Patient's labs were significant for hyponatremia of 125 down from 130 on the 2nd, patient's labs are also significant for transaminitis likely due to alcohol abuse based on the patient's history. Patient was placed on propofol infusion and was given subsequent boluses of fentanyl for sedation. CT imaging of the head was completed due to the patient's history of recurrent seizures which was unremarkable. Chest x-ray was completed to confirm endotracheal tube position and orogastric tube placement both of which were adjusted after the x-ray. I discussed the patient with Dr. Elo Mock who accepted the patient to the ICU for further treatment. Patient arrived to the floor and was found to have an endotracheal tube leak so I changed the endotracheal tube using a bougie and a 7 mL endotracheal tube, chest x-ray was repeated at that time. Procedure Endotracheal intubation: Patient's airway was examined and revealed a grossly edematous tongue with active bleeding due to a bite wound during seizure activity. Patient had a subsequent seizure and was unable to protect his airway with gurgling respirations and blood filling airway prompting the patient be transferred to room 5 in order to secure the airway. Initial attempt at airway visualization was attempted using a glydescope 3 but I was unable to fully visualize the vocal cords prompting the patient to be ventilated using BVM and subsequently a glyde 4 was used for better visualization while suctioning. A 7.5 endotracheal tube was passed through the vocal cords with good capnography return, condensation in the endotracheal tube, bilateral breath sounds were auscultated, endotracheal tube was 23 at the lips which was then adjusted to 25 at the lips after chest x-ray was completed. Though the initial chest x-ray was read as having the endotracheal tube tip at the level of the thoracic outlet, endotracheal tube was 23 cm making this unlikely. Patient was transferred to the ICU at which time an endotracheal tube leak was identified prompting exchange for a 7.0 endotracheal tube using a bougie which was completed without complication. Decision to Disposition Date: January 08, 2019 Decision to Disposition Time: 16:24 Depart Departure Latest Vital Signs Vital Signs Date Time Temp Pulse Resp B/P (MAP) Pulse Ox O2 Delivery O2 Flow Rate FiO2 01/08/19 15:25 147/113 (124) 01/08/19 14:30 60.0 01/08/19 13:30 115 01/08/19 13:11 23 86 01/08/19 12:30 99.3 Room Air Impression: Primary Impression: H/O traumatic brain injury Additional Impressions: Alcohol withdrawal Elevated liver enzymes Hyponatremia Seizure Condition: Critical Disposition: Admitted from ER Problem Qualifiers SHIMON FONG DO January 08, 2019 12:30
[2019-01-08] MEDS ORDERED: NS(*) 0.9% 1000 ML BAG 1,000 ML IV ONE ×3 (12:46→17:40)
[2019-01-08] MEDS ORDERED: KETOROLAC 30 MG/ML VIAL IVP ONE (12:50)
[2019-01-08] MEDS ORDERED: methylPREDNIS SUCC 125 MG/2ML IVP ONE (12:50)
[2019-01-08] MEDS ORDERED: diphenhydrAMINE 50 MG/ML VIAL IVP ONE (12:50)
[2019-01-08] MEDS ORDERED: TRANEXAMIC AC 1000 MG/10ML SDV ONE (13:05)
[2019-01-08 13:07] LABS: PLATELET COUNT, AUTOMATED 74 K/uL (150-450)
[2019-01-08 13:16] LABS: INR 0.95
[2019-01-08] MEDS ORDERED: KETAMINE HCL-NS 50 MG/5 ML SYR ONE (13:46)
--- NOTE | 2019-01-08 13:53 | RADIOLOGY IMAGING REPORT ---
FACILITY: [facility] PATIENT NAME: Jaspreet Sosa : 1970 MR: [id number] V: [id number] EXAM DATE: ORDERING PHYSICIAN: SHIMON FONG TECHNOLOGIST: [place] [facility] [place]: Jaspreet Sosa : 1970 Visit/Account:[id number] Date of Sevice: 01/08/2019 EXAMINATION: Chest radiograph HISTORY: Respiratory distress COMPARISON: May 24, 2017 FINDINGS: Frontal view obtained. Lines/tubes: None. Cardiomediastinal silhouette: Normal. Lungs/pleura: Unchanged blunting of the left costophrenic angle. Otherwise unremarkable. Bony structures/chest wall: Unchanged slight convexity left scoliosis. IMPRESSION: 1. Unchanged left costophrenic angle blunting. 2. No apparent acute finding. Report Dictated By: Miky Davis MD at 01/08/2019 1:47 PM Report E-Signed By: Miky Davis MD at 01/08/2019 1:49 PM [id number]
--- NOTE | 2019-01-08 13:54 | RADIOLOGY IMAGING REPORT ---
FACILITY: PATIENT NAME: Jaspreet Sosa : 1970 MR: [id number] V: [id number] EXAM DATE: ORDERING PHYSICIAN: SHIMON FONG TECHNOLOGIST: Location: [facility] Patient: Jaspreet Sosa : 1970 Visit/Account:[id number] Date of Sevice: 01/08/2019 EXAMINATION: Soft tissue neck radiographs HISTORY: Shortness of breath, tongue swelling COMPARISON: None. FINDINGS: Frontal and lateral views obtained. The visible lungs are clear. Normal prevertebral soft tissues. No definitive epiglottis enlargement. No apparent neck soft tissue abnormality. Normal osseous structur es. IMPRESSION: No apparent neck soft tissue abnormality. Report Dictated By: Miky Davis MD at 01/08/2019 1:49 PM Report E-Signed By: Miky Davis MD at 01/08/2019 1:50 PM WSN:[id number]
[2019-01-08] MEDS ORDERED: fentaNYL CITR 100 MCG/2 ML AMP IVP ONE (14:05)
[2019-01-08] MEDS ORDERED: PROPOFOL(*)1000 MG/100 ML VIAL 100 ML IV SCH (14:05)
[2019-01-08] MEDS ORDERED: PROPOFOL EMUL 10MG/ML 20 ML VL IV ONE (14:05)
[2019-01-08] MEDS ORDERED: ROCURONIUM BROM 10 MG/ML 10 ML IVP STA (14:11)
--- NOTE | 2019-01-08 14:56 | RADIOLOGY IMAGING REPORT ---
FACILITY: [facility] PATIENT NAME: Jaspreet Sosa : 1970 MR: [id number] V: [id number] EXAM DATE: ORDERING PHYSICIAN: SHIMON FONG TECHNOLOGIST: Location: [facility] [place] Patient: Jaspreet Sosa : 1970 Visit/Account:[id number] Date of Sevice: 01/08/2019 Examination: CHEST SINGLE AP Comparison: Same day and earlier. History: post intubation Findings: The tip of the endotracheal tube is at or above the level of the thoracic outlet and approx imately 12-13 cm above the nasir. Tip of the enteric tube is at the expected level of the gastroeso phageal junction. Cardiac and hilar contour size is prominent but unchanged. Questionable increased vascular congestio n but no definite evidence of edema. No consolidation. No pneumothorax. The left costophrenic angl e is excluded from this study. Visualized bowel gas pattern is within normal limits. Osseous structures are intact. IMPRESSION: 1. Support equipment as described above. 2. Questionable increased vascular congestion but no definite evidence of edema. Results were discussed with SHIMON FONG at 01/08/2019 2:50 PM. Report Dictated By: Oleksandr Luz MD at 01/08/2019 2:38 PM Report E-Signed By: Oleksandr Luz MD at 01/08/2019 2:52 PM WSN:[id number]
--- NOTE | 2019-01-08 15:28 | RADIOLOGY IMAGING REPORT ---
FACILITY: [facility] - [place] PATIENT NAME: Jaspreet Sosa : 1970 MR: [id number] V: [id number] EXAM DATE: [id number] ORDERING PHYSICIAN: SHIMON FONG TECHNOLOGIST: Location: [facility] [place] Patient: Jaspreet Sosa : 1970 Visit/Account:[id number] Date of Sevice: 01/08/2019 CT BRAIN NO CONTRAST HISTORY: seizure COMPARISON STUDIES: CT scan of the brain January 13, 2018. TECHNIQUE: Contiguous axial images were obtained from the skull base to the vertex. One of the following dose optimization techniques was utilized in the performance of this exam: Autom ated exposure control; adjustment of the mA and/or kV according to the patient's size; or use of an i terative reconstruction technique. Specific details can be referenced in the facility's radiology C T exam operational policy. FINDINGS: Hemorrhage: There is no intraparenchymal or extra-axial mass or bleed. Ventricles / sulci / fissures: The ventricles and sulci are normal in terms of size and configuration for a patient of this stated age. Masses / midline shift: Negative White matter and delong matter: No findings of lucency. Extra-axial spaces: Negative Bones/skull base: Negative Visualized mastoid air cells / paranasal sinuses: There is mild mucosal thickening involving the ethm oid air cells and maxillary sinuses. There are perhaps fluid levels in the nasopharynx related to sec retions in this patient with gastric and pulmonary intubation. Scalp and soft tissues: Negative. Other findings: Endotracheal tube and orogastric tube are noted. IMPRESSION: Unremarkable CT scan of the brain. No findings of a mass or bleed. 2. Orogastric tube and endotracheal tube is described above. Report Dictated By: Tu Swift MD at 01/08/2019 3:20 PM Report E-Signed By: Tu Swift MD at 01/08/2019 3:24 PM WSN:[id number]
[2019-01-08 16:19] LABS: PLATELET COUNT, AUTOMATED 88 K/uL (150-450)
[2019-01-08] MEDS ORDERED: NS(*) 0.9% 1000 ML BAG 1,000 ML IV PRN (17:05)
[2019-01-08] MEDS: NS(*) 0.9% 1000 ML BAG 1,000 ML IV PRN (17:09)
--- NOTE | 2019-01-08 17:28 | EKG ---
FACILITY: [facility] PATIENT NAME: CHERYL URBAN : [id number] MR: [id number] V: [id number] EXAM DATE: ORDERING PHYSICIAN: SHIMON FONG TECHNOLOGIST: Test Reason : Blood Pressure : / mmHG Vent. Rate : 104 BPM Atrial Rate : 104 BPM P-R Int : 150 ms QRS Dur : 100 ms QT Int : 354 ms P-R-T Axes : 033 -43 038 degrees QTc Int : 465 ms Sinus tachycardia Left axis deviation Abnormal ECG Wavy baseline makes interpretation difficult Confirmed by VELIA YAO ([id number]) on 01/08/2019 7:42:16 PM Referred By: Confirmed By:VELIA YAO
--- NOTE | 2019-01-08 17:39 | RADIOLOGY IMAGING REPORT ---
FACILITY: [facility] PATIENT NAME: Jaspreet Sosa : 1970 MR: [id number] V: [id number] EXAM DATE: ORDERING PHYSICIAN: VELIA RAI TECHNOLOGIST: Location: [facility] Patient: Jaspreet Sosa : 1970 Visit/Account:[id number] Date of Sevice: 01/08/2019 Examination: CHEST SINGLE AP Comparison: Same day and earlier. History: Intubation. Findings: The endotracheal tube has been advanced and the tip of the endotracheal tube is now approxi mately 6 cm above the nasir. Enteric tube position is unchanged with the tip in the region of the g astroesophageal junction. Cardiac and hilar contour is prominent but unchanged. New indistinct parenchymal density in the right lower lobe. No pneumothorax or definite effusion. Osseous structures are intact. IMPRESSION: 1. Endotracheal tube has been advanced and is now approximately 6 cm above the nasir. 2. Tip of the enteric tube is in the region of the gastroesophageal junction. 3. New right lower lobe density is suggestive of atelectasis versus aspiration. Report Dictated By: Oleksandr Luz MD at 01/08/2019 5:33 PM Report E-Signed By: Oleksandr Luz MD at 01/08/2019 5:36 PM WSN:[email or web address]
--- NOTE | 2019-01-08 17:59 | EKG ---
FACILITY: [facility] PATIENT NAME: CHERYL URBAN : [id number] MR: [id number] V: [id number] EXAM DATE: ORDERING PHYSICIAN: SHIMON FONG TECHNOLOGIST: Test Reason : Blood Pressure : / mmHG Vent. Rate : 168 BPM Atrial Rate : 168 BPM P-R Int : 104 ms QRS Dur : 090 ms QT Int : 302 ms P-R-T Axes : 006 -27 058 degrees QTc Int : 504 ms Sinus tachycardia with short HI Otherwise normal ECG When compared with ECG of 08-JAN-2019 12:55, HI interval has decreased Vent. rate has increased BY 64 BPM Confirmed by VELIA YAO ([id number]) on 01/08/2019 7:38:44 PM Referred By: Confirmed By:VELIA YAO
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
[2019-01-08] MEDS: PROPOFOL(*)1000 MG/100 ML VIAL 100 ML IV PRN (18:28)
[2019-01-08] MEDS ORDERED: MIDAZOLAM 1 MG/1 ML 10 ML IVP ONE (18:35)
[2019-01-08] MEDS: MIDAZOLAM 50 MG/10 ML VIAL 250 MG in NS(*) 0.9% 250 ML BAG 200 ML IV PRN (20:00)
--- NOTE | 2019-01-08 20:19 | RADIOLOGY IMAGING REPORT ---
FACILITY: [facility] - [place], [place] PATIENT NAME: Jaspreet Sosa : 1970 MR: [id number] V: [id number] EXAM DATE: ORDERING PHYSICIAN: VELIA RAI TECHNOLOGIST: Location: [facility] Patient: Jaspreet Sosa : 1970 Visit/Account:[id number] Date of Sevice: 01/08/2019 INDICATION: Evaluate endotracheal tube position DATE: 01/08/2019 8:14 PM. TECHNIQUE: CHEST SINGLE AP COMPARISON: Chest radiographs of the same day FINDINGS: The endotracheal tube is positioned above the nasir just below the clavicular heads. Mild left basilar atelectasis. Stable cardiac silhouette. Improved aeration at the right base. IMPRESSION: Endotracheal tube positioned above the nasir below the clavicular heads. Report Dictated By: Zari Ruiz MD at 01/08/2019 8:14 PM Report E-Signed By: Zari Ruiz MD at 01/08/2019 8:15 PM WSN:[id number]
[2019-01-08] MEDS: levETIRAcetam(*)500 MG/5 ML VI 500 MG in NS(*) 0.9% 100 ML BAG 100 ML IV SCH (21:17)
[2019-01-08] MEDS: ORAL SUCTION/CHLORHX/SWAB KIT MT SCH (22:09)
[2019-01-09] VITALS (94 sets, daily range): BP systolic 85–130; BP diastolic 62–112
[2019-01-09] MEDS ORDERED: LORazepam 2 MG/ML VIAL ONE (02:27)
[2019-01-09] MEDS ORDERED: NOREPINEPH BITAR 4 MG/4 ML AMP ONE ×2 (02:32→02:37)
[2019-01-09] MEDS: NOREPINE BITAR* 4 MG/4 ML AMP 4 MG in D5W(*) 250 ML BAG 246 ML IV SCH ×2 (03:05→23:57)
[2019-01-09] MEDS: NS(*) 0.9% 1000 ML BAG 1,000 ML IV PRN ×5 (04:25→23:57)
[2019-01-09 05:04] LABS: PLATELET COUNT, AUTOMATED 85 K/uL (150-450)
[2019-01-09] MEDS ORDERED: IV BOLUS 500 ML IVSOL IV ONE (07:25)
[2019-01-09] MEDS: PROPOFOL(*)1000 MG/100 ML VIAL 100 ML IV PRN ×3 (07:54→21:38)
[2019-01-09] MEDS ORDERED: ALBUMIN HUMAN 5% 250 ML BTL 250 ML IVPB ONE (08:00)
--- NOTE | 2019-01-09 08:02 | RADIOLOGY IMAGING REPORT ---
FACILITY: [facility] - [place] PATIENT NAME: Jaspreet Sosa : 1970 MR: [id number] V: [id number] EXAM DATE: ORDERING PHYSICIAN: VELIA RAI TECHNOLOGIST: Location: [facility] - [place] Patient: Jaspreet Sosa : 1970 Visit/Account:[id number] Date of Sevice: 01/09/2019 Study: Single portable view of the chest. Indication: Possible aspiration pneumonia Comparison study: 01/08/2019 Technique: Single AP view of the chest demonstrates no evidence of acute infiltrate. There is no evid ence of pleural effusion or pneumothorax. The mediastinal, cardiac, and diaphragmatic contours are un remarkable. There is an endotracheal tube with the tip 5 cm above the level of the nasir. There is a nasogastric tube with the tip overlying the stomach. IMPRESSION: Lines and tubes as described. There is no evidence of acute cardiopulmonary abnormality. Report Dictated By: Navneet Mustafa at 01/09/2019 7:57 AM Report E-Signed By: Navneet Mustafa at 01/09/2019 7:58 AM WSN:[id number]
[2019-01-09] MEDS: PANTOPRAZOLE SOD 40 MG IV VIAL IVP SCH (09:48)
[2019-01-09] MEDS: ORAL SUCTION/CHLORHX/SWAB KIT MT SCH ×2 (09:52→20:40)
[2019-01-09] MEDS: levETIRAcetam(*)500 MG/5 ML VI 500 MG in NS(*) 0.9% 100 ML BAG 100 ML IV SCH ×2 (09:55→21:18)
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
--- NOTE | 2019-01-09 13:52 | Medical Nutrition Therapy ---
Nutrition Anthropometrics Height (Inches): 72 Weight (Pounds): 257 Weight (Calculated Kilograms): 116.573 BMI: 34.9 Scott Nutrition Score: Probably Inadequate Scott Nutrition Risk Score: 11 Dietary Referral Nutrition Risk Factors: Nutrition Risk Comment: Physical Findings Physical Appearance: Obese BMI 30-39 Skin Appearance Skin Appearance: Edema Edema Location Modifier: Edema Location: Type of Edema: Degree of Edema: Gastrointestinal Symptoms GI Symtoms: Tube Present: Bowel Sounds: Recent Bowel Pattern: Stool Characteristics: Nutrition/Food History No Significant Nutr. HX Alcohol Use: Currently Amount of Alcohol Used: 2 24oz twisted teas/day Nutritional Diagnosis Nutritional Risk Acuity 1: Tube Feed Unstable Past Medical History: seizures, HTN, pneumonia, pancreatitis, gall bladder disease, schizophrenia, TBI, sptal heart defect, ETOH abuse, smoke /PPD Nutritional Acuity: 1-High Nutrition Diagnosis: Excessive Alcohol Intake Nutrition Etiology: Alcohol Addiction Nutrition Problem/Etiology/Sym: Excessive alcohol intake related to alcohol addiction as evidence by high AST 116, and ALT 137. Adjusted Energy Requirement Re: 2399 (Adj HB: BMI 34.9, 116.6kg 1.3AF) Protein Requirement: 93 (.8g/kg x 116.6kg) Fluid Requirement: 2399 (1mL/esau) Diet Type: Tube Feeding (TF) Nutritional Support Current Enteral / Parental: Tube Feeding Automatic H2O Flush (_ml every: 108 ml 6TPD Recommended Enteral / Parental: Tube Feeding Recommended Tube Feeding Formu: Jevity 1cal/ml-Standard Tube Feeding Supplement Streng: Full Recommended Feeding Route: FT Placed Nasogastric Recommended Rate: 15.6 Recommended Goal Rate: 87 Recommended Duration: 24 Recommended Feeding Comment: With 18ml/hr propofol (475cal) Recommended Calories: 2225 (93g x 1000mL/44.3g x .06) Recommended Protein: 93 (0.8g/kg) Recommended Lipids Calories: 475 (18ml/hr Propofol x 1.1cal/mL) Total Recommended Calories: 2700 Nutrition Monitoring & Eval RD Patient Assessment Time: [address] Assessment Type: RD Assessment Patient Nutrition Acuity: 1-High Follow Up Date: January 10, 2019 Nutritional Comment: 01/09 Pt admitted for seizure. Pt dx with sezure, hyponatremia, tongue laceration, lung consolidation, increased liver enzymes, HTN, hx ETOH abuse, hx TBI. Pt has increased Na to 129, but still low. Pt has elevated RBG of 198, AST 116, and ALT of 137. Recommend placing pt on a TF with full strength Jevity 1. With the goal of 87ml/hr to reach 2099 total calories. Pt will be 301 esau over energy requirements due to 475cal of lipid coming from propofol, but will meet 100% of protein needs. Recommend an additonal 646mL of additonal free water to meet fluid needs. Will continue to closely pt tolerance while on tube feed. MERVIN COTA January 09, 2019 13:20
[2019-01-09] MEDS: MIDAZOLAM 50 MG/10 ML VIAL 250 MG in NS(*) 0.9% 250 ML BAG 200 ML IV PRN (17:38)
[2019-01-09] MEDS: LORazepam 2 MG/ML VIAL IVP PRN (20:38)
[2019-01-09] MEDS ORDERED: ENOXAPARIN 100 MG/ML SYR SC ONE (22:35)
--- NOTE | 2019-01-09 22:40 | Miscellaneous Provider Note ---
Miscellaneous Provider Note Note Patient was noted to have short burst of non-sustained ventricular tachycardia. Will check electrolytes, troponin. Further evaluation/treatment pending results. THEO RAI MD January 09, 2019 22:40
[2019-01-10] VITALS (104 sets, daily range): BP systolic 78–124; BP diastolic 46–88
[2019-01-10] MEDS: LORazepam 2 MG/ML VIAL IVP PRN ×3 (03:14→07:47)
--- NOTE | 2019-01-10 03:51 | RADIOLOGY IMAGING REPORT ---
FACILITY: [facility] - [place] PATIENT NAME: Jaspreet Sosa : 1970 MR: [id number] V: [id number] EXAM DATE: ORDERING PHYSICIAN: THEO RAI TECHNOLOGIST: [place] [facility] [place]aspreet Sosa : 1970 Visit/Account:[id number] Date of Sevice: 01/10/2019 AP CHEST 01/10/2019 3:21 AM. INDICATION: Intubated. COMPARISON: Yesterday. FINDINGS: Endotracheal tube terminates in the mid to upper thoracic trachea. Esophagogastric tube enters the s tomach, tip is not imaged. Mild bibasilar patchy opacification. Question small right pleural effusi on. No pneumothorax. Heart size is likely normal. IMPRESSION: Suspect mild atelectasis at the lung bases, underlying infection not excluded. Question small right pleural effusion. Report Dictated By: Reed Patterson MD at 01/10/2019 3:45 AM Report E-Signed By: Reed Patterson MD at 01/10/2019 3:47 AM WSN:[id number]
[2019-01-10 05:33] LABS: PLATELET COUNT, AUTOMATED 53 K/uL (150-450)
--- NOTE | 2019-01-10 07:06 | EKG ---
FACILITY: [facility] PATIENT NAME: CHERYL URBAN : [id number] MR: [id number] V: [id number] EXAM DATE: ORDERING PHYSICIAN: THEO RAI TECHNOLOGIST: STAN Test Reason : ELEVATED TROPONIN Blood Pressure : / mmHG Vent. Rate : 111 BPM Atrial Rate : 111 BPM P-R Int : 146 ms QRS Dur : 098 ms QT Int : 378 ms P-R-T Axes : 054 009 153 degrees QTc Int : 514 ms Sinus tachycardia Possible Inferior infarct , age undetermined ST and Marked T wave abnormality, consider anterolateral ischemia Abnormal ECG When compared with ECG of 08-JAN-2019 15:11, Significant changes have occurred Confirmed by Julián Dimas ([id number]) on 01/10/2019 9:48:17 PM Referred By: CECELIA Confirmed By:Julián Bergeron
[2019-01-10] MEDS: NS(*) 0.9% 1000 ML BAG 1,000 ML IV PRN ×3 (07:46→15:12)
[2019-01-10] MEDS ORDERED: MIDAZOLAM 50 MG/10 ML VIAL 100 MG in NS(*) 0.9% 100 ML BAG 80 ML IV PRN (08:20)
[2019-01-10] MEDS ORDERED: MIDAZOLAM 50 MG/10 ML VIAL 250 MG in NS(*) 0.9% 250 ML BAG 200 ML IV PRN (08:35)
[2019-01-10] MEDS: levETIRAcetam(*)500 MG/5 ML VI 500 MG in NS(*) 0.9% 100 ML BAG 100 ML IV SCH ×2 (08:48→21:16)
[2019-01-10] MEDS: PROPOFOL(*)1000 MG/100 ML VIAL 100 ML IV PRN ×4 (08:49→23:20)
--- NOTE | 2019-01-10 09:16 | Procedure Note ---
Central Line Procedure Note Indication for Central Line: IV meds, IV fluids, CVP monitoring, blood draws. Central Line Lumen: Triple Central Line Procedure: Chlorhexidine Prep, Sterile Drapes Applied, Sterile Dressing Applied Central Line Position: L Internal Jugular Anesthesia Used: 1% Lidocaine CC's of Anesthesia: 3 Complications: None Central Line Post Position: Sutured, Confirmed Blood Return, Position Confirmed w/CXR ERNST KAPOOR MD January 10, 2019 09:16
--- NOTE | 2019-01-10 09:57 | RADIOLOGY IMAGING REPORT ---
[place] [facility] [place]IENT NAME: Jaspreet Sosa : 1970 MR: [id number] V: [id number] EXAM DATE: ORDERING PHYSICIAN: ERNST KAPOOR TECHNOLOGIST: Location: [facility] - [place] Patient: Jaspreet Sosa : 1970 Visit/Account:[id number] Date of Sevice: 01/10/2019 CHEST SINGLE AP INDICATION: CENTRAL LINE PLACEMENT COMPARISON: 01/10/2019 FINDINGS: The endotracheal tube is unchanged in position. There is been placement of a left IJ central line wi th the catheter tip within the superior vena cava. Heart size within normal limits. Bibasilar atelectasis is present, greater on the left than right, early infiltrate is not excluded There is no pneumothorax or pleural effusion. IMPRESSION: 1. No evidence of complication after left IJ line placement 2. Left lower lobe atelectasis versus infiltrate Report Dictated By: Tavon Gandhi at 01/10/2019 9:49 AM Report E-Signed By: Tavon Gandhi at 01/10/2019 9:51 AM WSN:[id number]
[2019-01-10] MEDS: MORPHINE 2 MG/ML SYR IVP PRN ×2 (10:01→10:21)
[2019-01-10] MEDS: ORAL SUCTION/CHLORHX/SWAB KIT MT SCH ×2 (10:04→21:16)
[2019-01-10] MEDS: PANTOPRAZOLE SOD 40 MG IV VIAL IVP SCH (10:05)
[2019-01-10] MEDS: NS(*) 0.9% 500 ML BAG 500 ML IV PRN ×2 (13:23→23:20)
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
[2019-01-10] MEDS: NOREPINE BITAR* 4 MG/4 ML AMP 4 MG in D5W(*) 250 ML BAG 246 ML IV SCH (15:13)
--- NOTE | 2019-01-10 17:08 | Medical Nutrition Therapy ---
Nutrition Anthropometrics Height (Inches): 72 Weight (Pounds): 261 Weight (Calculated Kilograms): 118.388 BMI: 34.9 Scott Nutrition Score: Probably Inadequate Scott Nutrition Risk Score: 11 Dietary Referral Nutrition Risk Factors: Nutrition Risk Comment: Physical Findings Physical Appearance: Obese BMI 30-39 Skin Appearance Skin Appearance: Edema Edema Location Modifier: Edema Location: Type of Edema: Degree of Edema: Gastrointestinal Symptoms GI Symtoms: Tube Present: Bowel Sounds: Recent Bowel Pattern: Stool Characteristics: Nutritional Diagnosis Nutritional Risk Acuity 1: Tube Feed Unstable Past Medical History: seizures, HTN, pneumonia, pancreatitis, gall bladder disease, schizophrenia, TBI, sptal heart defect, ETOH abuse, smoke 1/PPD Nutritional Acuity: 1-High Nutrition Diagnosis: Excessive Alcohol Intake Nutrition Etiology: Alcohol Addiction Nutrition Problem/Etiology/Sym: Excessive alcohol intake related to alcohol addiction as evidence by high AST 116, and ALT 137. Adjusted Energy Requirement Re: 2399 (Adj HB: BMI 34.9, 116.6kg 1.3AF) Protein Requirement: 93 (.8g/kg x 116.6kg) Fluid Requirement: 2399 (1mL/esau) Diet Type: Tube Feeding (TF) Additional Diet Restrictions: ALLEGIES GREEN TEA Nutritional Support Current Enteral / Parental: Tube Feeding Tube Feeding Supplement Streng: Full Rate: 80 Current Duration: 24 Current Calories: 2035 Current Protein: 85 Current Lipids Calories: 665 Total Current Calories: 2700 Automatic H2O Flush (_ml every: 108 ml 6TPD Recommended Enteral / Parental: Tube Feeding Recommended Tube Feeding Formu: Specialty Formula (Promote) Tube Feeding Supplement Streng: Full Recommended Feeding Route: FT Placed Nasogastric Recommended Goal Rate: 70 Recommended Duration: 24 Recommended Feeding Comment: With 25.2ml/hr propofol Recommended Calories: 1680 Recommended Protein: 105 Recommended Lipids Calories: 665 Total Recommended Calories: 2345 Nutrition Monitoring & Eval RD Patient Assessment Time: [address] Assessment Type: RD Re-Assessment Patient Nutrition Acuity: 1-High Follow Up Date: January 11, 2019 Nutritional Comment: 01/09 Pt admitted for seizure. Pt dx with sezure, hyponatremia, tongue laceration, lung consolidation, increased liver enzymes, HTN, hx ETOH abuse, hx TBI. Pt has increased Na to 129, but still low. Pt has elevated RBG of 198, AST 116, and ALT of 137. Recommend placing pt on a TF with full strength Jevity 1. With the goal of 87ml/hr to reach 2099 total calories. Pt will be 301 esau over energy requirements due to 475cal of lipid coming from propofol, but will meet 100% of protein needs. Recommend an additonal 646mL of additonal free water to meet fluid needs. Will continue to closely pt tolerance while on tube feed. CD 01/10 Pt is currently 60ml/hr of jevity 1. Pt would benefit from being placed on 70mL/hr of Promote. This will meet 98% of pt needs with 25.2mL/hr of propofol. Pt will receive 105g of protein, which is 113% of requirements. Pt could also benefit from 989mL of additional fluids to meet fluid needs which could be met by IV med. Will continue to monitor. MERVIN COTA January 10, 2019 15:38
[2019-01-11] VITALS (94 sets, daily range): BP systolic 87–135; BP diastolic 56–93
[2019-01-11] MEDS: PROPOFOL(*)1000 MG/100 ML VIAL 100 ML IV PRN ×6 (03:17→22:28)
[2019-01-11] MEDS: NS(*) 0.9% 1000 ML BAG 1,000 ML IV PRN ×2 (03:18→05:07)
[2019-01-11] MEDS: NOREPINE BITAR* 4 MG/4 ML AMP 4 MG in D5W(*) 250 ML BAG 246 ML IV SCH (05:49)
[2019-01-11 06:07] LABS: PLATELET COUNT, AUTOMATED 50 K/uL (150-450)
[2019-01-11] MEDS ORDERED: NS(*) 0.9% 1000 ML BAG 1,000 ML IV PRN (08:29)
[2019-01-11] MEDS: PANTOPRAZOLE SOD 40 MG IV VIAL IVP SCH (09:35)
[2019-01-11] MEDS: ORAL SUCTION/CHLORHX/SWAB KIT MT SCH ×2 (09:35→20:03)
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
[2019-01-11] MEDS: levETIRAcetam(*)500 MG/5 ML VI 500 MG in NS(*) 0.9% 100 ML BAG 100 ML IV SCH ×2 (09:49→20:48)
--- NOTE | 2019-01-11 15:39 | Medical Nutrition Therapy ---
Nutrition Anthropometrics Height (Inches): 72 Weight (Pounds): 272 Weight (Calculated Kilograms): 123.604 BMI: 34.9 Scott Nutrition Score: Adequate Scott Nutrition Risk Score: 13 Dietary Referral Nutrition Risk Factors: Nutrition Risk Comment: Physical Findings Physical Appearance: Obese BMI 30-39 Skin Appearance Skin Appearance: Edema Edema Location Modifier: Edema Location: Type of Edema: Degree of Edema: Gastrointestinal Symptoms GI Symtoms: Tube Present: Bowel Sounds: Recent Bowel Pattern: Stool Characteristics: Nutritional Diagnosis Nutritional Risk Acuity 1: Tube Feed Unstable Past Medical History: seizures, HTN, pneumonia, pancreatitis, gall bladder disease, schizophrenia, TBI, sptal heart defect, ETOH abuse, smoke 1/PPD Nutritional Acuity: 1-High Nutrition Diagnosis: Excessive Alcohol Intake Nutrition Etiology: Alcohol Addiction Nutrition Problem/Etiology/Sym: Excessive alcohol intake related to alcohol addiction as evidence by high AST 116, and ALT 137. Adjusted Energy Requirement Re: 2399 (Adj HB: BMI 34.9, 116.6kg 1.3AF) Protein Requirement: 99 (.8g/kg x 123.6) Fluid Requirement: 2399 (1mL/esau) Diet Type: Tube Feeding (TF) Additional Diet Restrictions: ALLEGIES GREEN TEA Nutritional Support Current Enteral / Parental: Tube Feeding Tube Feeding Supplement Streng: Full Rate: 80 Current Duration: 24 Current Calories: 2035 Current Protein: 85 Current Lipids Calories: 665 Total Current Calories: 2700 Automatic H2O Flush (_ml every: 108 ml 6TPD Recommended Enteral / Parental: Tube Feeding Recommended Tube Feeding Formu: Jevity 1cal/ml-Standard Tube Feeding Supplement Streng: Full Recommended Feeding Route: FT Placed Nasogastric Recommended Goal Rate: 70 Recommended Duration: 24 Recommended Feeding Comment: With 25.2ml/hr propofol Recommended Calories: 1680 Recommended Protein: 74 Recommended Lipids Calories: 665 Total Recommended Calories: 2345 Nutrition Monitoring & Eval RD Patient Assessment Time: [address] Assessment Type: RD Re-Assessment Patient Nutrition Acuity: 1-High Follow Up Date: January 12, 2019 Nutritional Comment: 01/09 Pt admitted for seizure. Pt dx with sezure, hyponatremia, tongue laceration, lung consolidation, increased liver enzymes, HTN, hx ETOH abuse, hx TBI. Pt has increased Na to 129, but still low. Pt has elevated RBG of 198, AST 116, and ALT of 137. Recommend placing pt on a TF with full strength Jevity 1. With the goal of 87ml/hr to reach 2099 total calories. Pt will be 301 esau over energy requirements due to 475cal of lipid coming from propofol, but will meet 100% of protein needs. Recommend an additonal 646mL of additonal free water to meet fluid needs. Will continue to closely pt tolerance while on tube feed. CD 01/10 Pt is currently 60ml/hr of jevity 1. Pt would benefit from being placed on 70mL/hr of Promote. This will meet 98% of pt needs with 25.2mL/hr of propofol. Pt will receive 105g of protein, which is 113% of requirements. Pt could also benefit from 989mL of additional fluids to meet fluid needs which could be met by IV med. Will continue to monitor. CD 01/11 Pt also has elevated BUN 27, RBG 115. Pt AST 39 and ALT 59 are high, but are slowly going down. Pt also has low Hgb 13.8 and Hct 41.3. Pt has elevated creatinine 3.8 causing pt to have acute renal failure. After reevaluation suggest keeping pt on Jevity 1, but decreasing to 70mL/hr. With 25.2ml/hr of propofol, this will provide pt with 98% of caloric needs and 75% of protein needs. With pt being obese and having acute renal failure this will help to prevent wt gain and decrease stress on pt kidneys. Will continue to closely monitor. MERVIN COTA January 11, 2019 08:46
[2019-01-12] VITALS (59 sets, daily range): BP systolic 108–173; BP diastolic 72–120
[2019-01-12] MEDS: PROPOFOL(*)1000 MG/100 ML VIAL 100 ML IV PRN ×2 (01:37→05:43)
[2019-01-12 05:25] LABS: PLATELET COUNT, AUTOMATED 61 K/uL (150-450)
--- NOTE | 2019-01-12 06:28 | RADIOLOGY IMAGING REPORT ---
FACILITY: [facility] - [place] PATIENT NAME: Jaspreet Sosa : 1970 MR: [id number] V: [id number] EXAM DATE: ORDERING PHYSICIAN: SHELTON HOLGUIN TECHNOLOGIST: Location: [facility] - [place], [place] Patient: Jaspreet Sosa : 1970 Visit/Account:[id number] Date of Sevice: 01/12/2019 AP CHEST 01/12/2019 5:57 AM. INDICATION: Intubation COMPARISON: 01/10/2019. FINDINGS/IMPRESSION: Support line and tubes are unchanged. Left greater than right basilar consolida tion/atelectasis is unchanged. Small left pleural effusion not excluded. No pneumothorax. Heart si ze is unchanged. Report Dictated By: Reed Patterson MD at 01/12/2019 6:22 AM Report E-Signed By: Reed Patterson MD at 01/12/2019 6:24 AM [id number]
[2019-01-12] MEDS ORDERED: MAGNESIUM SUL* 2 GM/50 ML IVPB 50 ML IVPB ONE (08:05)
[2019-01-12] MEDS: ORAL SUCTION/CHLORHX/SWAB KIT MT SCH (08:35)
[2019-01-12] MEDS: PANTOPRAZOLE SOD 40 MG IV VIAL IVP SCH (08:35)
[2019-01-12] MEDS: levETIRAcetam(*)500 MG/5 ML VI 500 MG in NS(*) 0.9% 100 ML BAG 100 ML IV SCH ×2 (08:46→20:16)
[2019-01-12] MEDS ORDERED: ALBUTEROL 2.5 MG/3 ML NEB NEB PRN (09:10)
[2019-01-12] MEDS ORDERED: BUSP30TA18 PO (11:13)
[2019-01-12] MEDS ORDERED: HYDR25CA13 PO (11:13)
[2019-01-12] MEDS ORDERED: BUDE10.2 PO (11:13)
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
[2019-01-12] MEDS: LORazepam 2 MG/ML VIAL IVP PRN ×9 (11:31→22:22)
[2019-01-12] MEDS: THIAMINE HCL 200 MG/2 ML INJ IVP SCH (11:31)
[2019-01-12] MEDS: AMPICILLIN/SULBACT (*) 3 GM VL 3 GM in NS(*) 0.9% 100 ML MINI-BAG 100 ML IVPB SCH ×2 (12:07→17:18)
[2019-01-12] MEDS: ALBUTEROL 2.5 MG/3 ML NEB NEB PRN ×2 (12:19→16:26)
--- NOTE | 2019-01-12 12:39 | NUR ---
ST Encounter Attempted completion of ST evaluation. Pt recently extubated, RN reporting agitation and ongoing symptoms of withdrawal. Will defer until 01/13.
--- NOTE | 2019-01-12 14:04 | Medical Nutrition Therapy ---
Nutrition Anthropometrics Height (Inches): 72 Weight (Pounds): 274 Weight (Calculated Kilograms): 124.511 BMI: 37.2 Scott Nutrition Score: Adequate Scott Nutrition Risk Score: 13 Dietary Referral Nutrition Risk Factors: Nutrition Risk Comment: Physical Findings Physical Appearance: Obese BMI 30-39 Skin Appearance Skin Appearance: Edema Edema Location Modifier: Both Edema Location: Foot Type of Edema: Degree of Edema: Non pitting Gastrointestinal Symptoms GI Symtoms: Tube Present: OG Bowel Sounds: Recent Bowel Pattern: Stool Characteristics: Nutritional Diagnosis Nutritional Risk Acuity 2: Tube Feed Stable Past Medical History: seizures, HTN, pneumonia, pancreatitis, gall bladder disease, schizophrenia, TBI, sptal heart defect, ETOH abuse, smoke 1/PPD Nutritional Acuity: 2-Moderate Nutrition Diagnosis: Excessive Alcohol Intake Nutrition Etiology: Alcohol Addiction Nutrition Problem/Etiology/Sym: Excessive alcohol intake related to alcohol addiction as evidence by high AST 116, and ALT 137. Adjusted Energy Requirement Re: 2399 (Adj HB: BMI 34.9, 116.6kg 1.3AF) Protein Requirement: 99 (.8g/kg x 123.6) Fluid Requirement: 2399 (1mL/esau) Diet Type: Tube Feeding (TF) Additional Diet Restrictions: ALLEGIES GREEN TEA Nutritional Support Current Enteral / Parental: Tube Feeding Tube Feeding Supplement Streng: Full Rate: 70 Current Duration: 24 Current Feeding Comment: With 25.2ml/hr propofol Current Calories: 1680 Current Protein: 74 Current Lipids Calories: 665 Total Current Calories: 2345 Automatic H2O Flush (_ml every: 108 ml 6TPD Recommended Enteral / Parental: Tube Feeding Recommended Tube Feeding Formu: Jevity 1cal/ml-Standard Tube Feeding Supplement Streng: Full Recommended Feeding Route: FT Placed Nasogastric Nutrition Monitoring & Eval RD Patient Assessment Time: [address] Assessment Type: RD Re-Assessment Patient Nutrition Acuity: 2-Moderate Follow Up Date: January 15, 2019 Nutritional Comment: 01/09 Pt admitted for seizure. Pt dx with sezure, hyponatremia, tongue laceration, lung consolidation, increased liver enzymes, HTN, hx ETOH abuse, hx TBI. Pt has increased Na to 129, but still low. Pt has elevated RBG of 198, AST 116, and ALT of 137. Recommend placing pt on a TF with full strength Jevity 1. With the goal of 87ml/hr to reach 2099 total calories. Pt will be 301 esau over energy requirements due to 475cal of lipid coming from propofol, but will meet 100% of protein needs. Recommend an additonal 646mL of additonal free water to meet fluid needs. Will continue to closely pt tolerance while on tube feed. CD 01/10 Pt is currently 60ml/hr of jevity 1. Pt would benefit from being placed on 70mL/hr of Promote. This will meet 98% of pt needs with 25.2mL/hr of propofol. Pt will receive 105g of protein, which is 113% of requirements. Pt could also benefit from 989mL of additional fluids to meet fluid needs which could be met by IV med. Will continue to monitor. CD 01/11 Pt also has elevated BUN 27, RBG 115. Pt AST 39 and ALT 59 are high, but are slowly going down. Pt also has low Hgb 13.8 and Hct 41.3. Pt has elevated creatinine 3.8 causing pt to have acute renal failure. After reevaluation suggest keeping pt on Jevity 1, but decreasing to 70mL/hr. With 25.2ml/hr of propofol, this will provide pt with 98% of caloric needs and 75% of protein needs. With pt being obese and having acute renal failure this will help to prevent wt gain and decrease stress on pt kidneys. Will continue to closely monitor. CD 01/12 Pt is doing well on 70mL/hr Jevity 1. Pt has gained 9lb since 01/08, but was on a TF that was providing 113% of caloric needs. Pt is now getting 98% of caloric needs. Pt will also lose wt as edema in feet is resolved. Pt RBG 90, AST 35, and ALT 54 are all normal. Pt Creatinine 3.10 is still high, but is slowly droping and should continue to improve with 75% of protein nees being provided at this time. Pt still has elevated BUN 27 and low Hgb 13 and Hct 39.1. Will continue to monitor pt weight and acceptance of TF. MERVIN COTA January 12, 2019 08:30
[2019-01-12] MEDS: DEXMEDETOMIDINE IN 0.9 % NACL 100 ML IV PRN ×2 (15:51→20:48)
[2019-01-12] MEDS: NS(*) 0.9% 1000 ML BAG 1,000 ML IV PRN (16:04)
[2019-01-12] MEDS ORDERED: DEXTROSE IV SCH (21:10)
[2019-01-12] MEDS ORDERED: NITROPRUSSIDE IV SCH (21:10)
[2019-01-13] VITALS (46 sets, daily range): BP systolic 112–177; BP diastolic 75–123
[2019-01-13] MEDS: AMPICILLIN/SULBACT (*) 3 GM VL 3 GM in NS(*) 0.9% 100 ML MINI-BAG 100 ML IVPB SCH ×5 (00:08→23:36)
[2019-01-13] MEDS: NS(*) 0.9% 1000 ML BAG 1,000 ML IV PRN (01:18)
[2019-01-13] MEDS: DEXMEDETOMIDINE IN 0.9 % NACL 100 ML IV PRN ×4 (01:24→20:10)
[2019-01-13] MEDS: ALBUTEROL 2.5 MG/3 ML NEB NEB PRN (02:47)
[2019-01-13] MEDS: LORazepam 2 MG/ML VIAL IVP PRN ×5 (03:55→21:58)
[2019-01-13 05:10] LABS: PLATELET COUNT, AUTOMATED 94 K/uL (150-450)
--- NOTE | 2019-01-13 06:19 | RADIOLOGY IMAGING REPORT ---
[place] [facility] [place] Jaspreet Sosa : 1970 MR: [id number] V: [id number] EXAM DATE: ORDERING PHYSICIAN: SHELTON HOLGUIN TECHNOLOGIST: Location: [facility] Patient: Jaspreet Sosa : 1970 Visit/Account:[id number] Date of Sevice: 01/13/2019 AP CHEST 01/13/2019 5:00 AM. INDICATION: Intubated COMPARISON: Yesterday FINDINGS: Right base consolidation/atelectasis is increased. Slightly improved aeration of the left base with mild atelectasis. Probable bilateral small pleural effusions. No pneumothorax. Heart size is uncha nged. Endotracheal and esophagogastric tubes have been removed. Remains in place. IMPRESSION: 1. Right greater than left bibasilar consolidation/atelectasis and small pleural effusions. 2. Extubated. Report Dictated By: Reed Patterson MD at 01/13/2019 6:13 AM Report E-Signed By: Reed Patterson MD at 01/13/2019 6:15 AM WSN:[id number]
[2019-01-13] MEDS ORDERED: FUROSEMIDE 20 MG/2 ML VIAL IVP ONE (07:30)
[2019-01-13] MEDS: LR(*) 1000 ML BAG 1,000 ML IV PRN ×2 (07:47→16:59)
[2019-01-13] MEDS: THIAMINE HCL 200 MG/2 ML INJ IVP SCH (08:17)
[2019-01-13] MEDS: PANTOPRAZOLE SOD 40 MG IV VIAL IVP SCH (08:17)
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
[2019-01-13] MEDS: NS(*) 0.9% 500 ML BAG 500 ML IV PRN (09:23)
[2019-01-13] MEDS: levETIRAcetam(*)500 MG/5 ML VI 500 MG in NS(*) 0.9% 100 ML BAG 100 ML IV SCH ×2 (09:25→20:22)
[2019-01-13] MEDS: DIAZEPAM 10 MG/2 ML SYR IVP PRN ×5 (17:07→21:58)
[2019-01-13] MEDS ORDERED: PROPOFOL(*)1000 MG/100 ML VIAL 100 ML ONE (21:13)
--- NOTE | 2019-01-13 21:54 | ER Inpatient Procedure ---
Inpatient Procedure 2124 called to ICU to perform rapid sequence intubation for Dr. Bradley on a combative patient who is suffering alcohol withdrawals and detox. Procedure: Rapid sequence intubation. Indication for the procedure was airway protection. The patient was preoxygenated with 100% oxygen by face mask. The patient was given the following IV medications: Etomidate 20 mg, succinyl choline 150 mg. The patient was orally endotracheally intubated under direct visualization with a Glidescope with a 8.0 ETT. In line stabilization was performed during the procedure. Tracheal intubation was confirmed with misting on the tube; breath sounds were auscultated equally bilaterally; appropriate color change with [place] [employer] CO2 detector. Chest X-ray shows ETT in good position. The procedure was performed by myself. The ET tube was secured by respiratory therapy at 28 cm at the teeth. MARY ALVARADO DO January 13, 2019 21:53
[2019-01-13] MEDS ORDERED: SUCCINYLCHOL CHL 200MG/10ML VL IVP ONE (22:00)
[2019-01-13] MEDS ORDERED: ETOMIDATE 20 MG/10 ML VIAL IVP ONE (22:00)
[2019-01-13] MEDS ORDERED: MIDAZOLAM 50 MG/10 ML VIAL 100 MG in NS(*) 0.9% 100 ML BAG 80 ML IV PRN (22:01)
--- NOTE | 2019-01-13 22:02 | RADIOLOGY IMAGING REPORT ---
FACILITY: [facility] PATIENT NAME: Jaspreet Sosa : 1970 MR: [id number] V: [id number] EXAM DATE: [id number] ORDERING PHYSICIAN: MARY ALVARADO TECHNOLOGIST: Location: [facility] [place] Patient: Jaspreet Sosa : 1970 Visit/Account:[id number] Date of Sevice: 01/13/2019 Examination: CHEST SINGLE AP Comparison: Chest x-ray same day and earlier. History: intubation Findings: The tip of the endotracheal tube is approximately 3 cm above the nasir. The central venous catheter position is unchanged. Much of the left hemithorax is excluded from this study. The visualized cardiac and hilar contour is mildly enlarged but unchanged. Right lung base aeration is slightly improved. No pneumothorax IMPRESSION: 1. Intubation. 2. Partially improved right lower lung aeration. Report Dictated By: Oleksandr Luz MD at 01/13/2019 9:56 PM Report E-Signed By: Oleksandr Luz MD at 01/13/2019 9:58 PM WSN:[id number]
[2019-01-13] MEDS: PROPOFOL(*)1000 MG/100 ML VIAL 100 ML IV PRN (22:17)
--- NOTE | 2019-01-13 22:17 | Miscellaneous Provider Note ---
Miscellaneous Provider Note Note Patient had more and more difficulty with agitation not responsive to Valium this evening as well as more problems with secretions not clearing with cough and suctioning. Due to risks of aspiration, worsening respiratory distress and poorly controlled agitation, it was elected to re-intubate the patient and resume ativan, propofol, and versed in place of current meds. Dr. Jimenez from the ER did the intubation and patient subsequently improved nicely with no agitation, less cough and maintaining of VS. along with more effective suctioning. Portable CXR showed ET tube in good position at 28 cm at teeth. Will check ABG's when stable on vent settings. notified of these changes and understands and will come by in the morning. Repeat CXR in AM with ABG's, CBC and CMP. Current vent settings: FIO2 50% TV 600 CC IP 15 cm PEEP 5 cm Rate 18/min MAZIN WOLF MD FACP January 13, 2019 22:17
[2019-01-13] MEDS: MIDAZOLAM 50 MG/10 ML VIAL 250 MG in NS(*) 0.9% 250 ML BAG 200 ML IV PRN (22:29)
[2019-01-13] MEDS: ORAL SUCTION/CHLORHX/SWAB KIT MT SCH (22:32)
[2019-01-14] VITALS (57 sets, daily range): BP systolic 103–135; BP diastolic 72–95
[2019-01-14] MEDS: PROPOFOL(*)1000 MG/100 ML VIAL 100 ML IV PRN ×5 (00:41→19:39)
[2019-01-14 05:11] LABS: PLATELET COUNT, AUTOMATED 106 K/uL (150-450)
[2019-01-14] MEDS: AMPICILLIN/SULBACT (*) 3 GM VL 3 GM in NS(*) 0.9% 100 ML MINI-BAG 100 ML IVPB SCH ×3 (05:48→17:15)
[2019-01-14] MEDS: NS(*) 0.9% 500 ML BAG 500 ML IV PRN (06:14)
[2019-01-14] MEDS: LORazepam 2 MG/ML VIAL IVP PRN (06:37)
--- NOTE | 2019-01-14 06:49 | RADIOLOGY IMAGING REPORT ---
FACILITY: [facility] [place] PATIENT NAME: Jaspreet Sosa : 1970 MR: [id number] V: [id number] EXAM DATE: ORDERING PHYSICIAN: MAZIN WOLF TECHNOLOGIST: [place] [facility] [place]: Jaspreet Sosa : 1970 Visit/Account:[id number] Date of Sevice: 01/14/2019 Portable chest: Indication: Respiratory distress. Technique: A single frontal film was obtained. Comparison: 01/13/2019 Lines and tubes: The ET tube is 3.7 cm above the nasir. The left jugular venous catheter is in the S VC. Skeletal and soft tissue structures: Intact and unchanged. Heart and mediastinum: Stable. Lung stanley: There is persistent ill-defined opacity in the right lower lung field, compatible with p neumonia. No new focal opacities are identified. Pleural spaces: There is no evidence of pneumothorax. There are bilateral small effusions. Impression: The ET tube and central line are in satisfactory position. There is persistent right basi lar opacity, compatible with pneumonia. Report Dictated By: Wayoln Easton MD at 01/14/2019 6:43 AM Report E-Signed By: Waylon Easton MD at 01/14/2019 6:45 AM WSN:[id number]
[2019-01-14] MEDS ORDERED: MAGNESIUM SUL* 2 GM/50 ML IVPB 50 ML IVPB ONE (07:05)
--- NOTE | 2019-01-14 08:47 | RADIOLOGY IMAGING REPORT ---
[place] [facility] [place] NAME: Jaspreet Sosa : 1970 MR: [id number] V: [id number] EXAM DATE: ORDERING PHYSICIAN: DELMIS SIDHU TECHNOLOGIST: [place] [facility] [place] [place]reet Sosa : 1970 Visit/Account:[id number] Date of Sevice: 01/14/2019 CHEST SINGLE AP INDICATION: OG tube placement COMPARISON: None available FINDINGS: Endotracheal tube terminates 3.3 cm above the nasir. Left-sided IJ central line terminates in the crawford perior vena cava. The cardiac silhouette is mildly enlarged with increased pulmonary vascular congestion. There is biba silar atelectasis with small pleural effusions present. IMPRESSION: 1. Stable lines and catheters 2. Increasing pulmonary vascular congestion with stable bibasilar atelectasis versus infiltrate and p robable small effusions Report Dictated By: Tavon Gandhi at 01/14/2019 8:42 AM Report E-Signed By: Tavon Gandhi at 01/14/2019 8:45 AM WSN:[id number]
[2019-01-14] MEDS: ORAL SUCTION/CHLORHX/SWAB KIT MT SCH ×2 (08:53→21:14)
[2019-01-14] MEDS: THIAMINE HCL 200 MG/2 ML INJ IVP SCH (08:53)
[2019-01-14] MEDS: PANTOPRAZOLE SOD 40 MG IV VIAL IVP SCH (08:53)
[2019-01-14] MEDS: ENOXAPARIN 40 MG/0.4ML SYR SC SCH (08:53)
[2019-01-14] MEDS: levETIRAcetam(*)500 MG/5 ML VI 500 MG in NS(*) 0.9% 100 ML BAG 100 ML IV SCH ×2 (09:22→21:13)
--- NOTE | 2019-01-14 10:05 | RADIOLOGY IMAGING REPORT ---
[place] [facility] [place]IENT NAME: Jaspreet Sosa : 1970 MR: [id number] V: [id number] EXAM DATE: ORDERING PHYSICIAN: DELMIS SIDHU TECHNOLOGIST: Location: [facility] - [place] Patient: Jaspreet Sosa : 1970 Visit/Account:[id number] Date of Sevice: 01/14/2019 Portable chest, one view. HISTORY: OG placement. COMPARISON: 01/14/2019 at 0722 hours. 2 images were obtained. EKG leads project on the chest. An endotracheal tube tip projects on the trac hea 2 cm above the nasir. An esophagogastric tube sidehole projects on the gastric body. The esophag ogastric tube tip is off the images. A left neck central venous catheter tip projects on the superior vena cava 2 cm above the superior cavoatrial junction. The heart size upper limits of normal. Pulmon theresa vessels are mildly engorged. Streaky densities are present in the lung bases, unchanged. The left lateral costophrenic sulcus is mildly blunted. No pneumothorax. No acute bony abnormalities. Surgica l clips project on the right upper abdomen. IMPRESSION: Lines and tubes as described above. Mild bibasilar lung consolidation, unchanged. Small left pleural effusion or thickening. Report Dictated By: Carlos Alberto Lynn MD at 01/14/2019 9:57 AM Report E-Signed By: Carlos Alberto Lynn MD at 01/14/2019 10:01 AM WSN:[id number]
--- NOTE | 2019-01-14 10:51 | Medical Nutrition Therapy ---
Nutrition Anthropometrics Height (Inches): 72 Weight (Pounds): 266 Weight (Calculated Kilograms): 120.656 BMI: 37.2 Scott Nutrition Score: Adequate Scott Nutrition Risk Score: 15 Dietary Referral Nutrition Risk Factors: Nutrition Risk Comment: Physical Findings Physical Appearance: Obese BMI 30-39 Skin Appearance Skin Appearance: Edema Edema Location Modifier: Both Edema Location: Foot Type of Edema: Degree of Edema: Gastrointestinal Symptoms GI Symtoms: Tube Present: OG Bowel Sounds: Recent Bowel Pattern: Stool Characteristics: Nutritional Diagnosis Nutritional Risk Acuity 1: Tube Feed Unstable Nutritional Risk Acuity 3: Alcohol abuse Past Medical History: seizures, HTN, pneumonia, pancreatitis, gall bladder disease, schizophrenia, TBI, sptal heart defect, ETOH abuse, smoke 1/PPD Nutritional Acuity: 1-High Nutrition Diagnosis: Excessive Alcohol Intake Nutrition Etiology: Alcohol Addiction Nutrition Problem/Etiology/Sym: Excessive alcohol intake related to alcohol addiction as evidence by high AST 116, and ALT 137. Adjusted Energy Requirement Re: 2399 (Adj HB: BMI 34.9, 116.6kg 1.3AF) Protein Requirement: 96 (.8g/kg) Fluid Requirement: 2399 (1mL/esau) Diet Type: Tube Feeding (TF) Additional Diet Restrictions: ALLEGIES GREEN TEA Nutritional Support Current Enteral / Parental: Tube Feeding Tube Feeding Formulas: Jevity 1cal/ml-Standard Tube Feeding Supplement Streng: Full Feeding Route: FT Placed Oralgastric Rate: 70 Current Duration: 24 Current Feeding Comment: With 26ml/hr propofol Current Calories: 1780 Current Protein: 74 Current Lipids Calories: 686 (from propofol at 2mls/hr) Total Current Calories: 2466 Automatic H2O Flush (_ml every: 108 ml 6TPD Recommended Tube Feeding Formu: Specialty Formula (Promote) Tube Feeding Supplement Streng: Full Recommended Rate: 65ml/hr Recommended Duration: 24 Recommended Calories: 1560 Recommended Protein: 98 Recommended Lipids Calories: 686 (from propofo at 26mls/hr) Total Recommended Calories: 2246 Nutrition Monitoring & Eval Nutritional Goals Comment: TF will meet nutr needs until oral intake can meet needs RD Patient Assessment Time: [address] Assessment Type: RD Re-Assessment Patient Nutrition Acuity: 1-High Follow Up Date: January 16, 2019 Nutritional Comment: 01/09 Pt admitted for seizure. Pt dx with sezure, hyponatremia, tongue laceration, lung consolidation, increased liver enzymes, HTN, hx ETOH abuse, hx TBI. Pt has increased Na to 129, but still low. Pt has elevated RBG of 198, AST 116, and ALT of 137. Recommend placing pt on a TF with full strength Jevity 1. With the goal of 87ml/hr to reach 2099 total calories. Pt will be 301 esau over energy requirements due to 475cal of lipid coming from propofol, but will meet 100% of protein needs. Recommend an additonal 646mL of additonal free water to meet fluid needs. Will continue to closely pt tolerance while on tube feed. CD 01/10 Pt is currently 60ml/hr of jevity 1. Pt would benefit from being placed on 70mL/hr of Promote. This will meet 98% of pt needs with 25.2mL/hr of propofol. Pt will receive 105g of protein, which is 113% of requirements. Pt could also benefit from 989mL of additional fluids to meet fluid needs which could be met by IV med. Will continue to monitor. CD 01/11 Pt also has elevated BUN 27, RBG 115. Pt AST 39 and ALT 59 are high, but are slowly going down. Pt also has low Hgb 13.8 and Hct 41.3. Pt has elevated creatinine 3.8 causing pt to have acute renal failure. After reevaluation suggest keeping pt on Jevity 1, but decreasing to 70mL/hr. With 25.2ml/hr of propofol, this will provide pt with 98% of caloric needs and 75% of protein needs. With pt being obese and having acute renal failure this will help to prevent wt gain and decrease stress on pt kidneys. Will continue to closely monitor. CD 01/12 Pt is doing well on 70mL/hr Jevity 1. Pt has gained 9lb since 01/08, but was on a TF that was providing 113% of caloric needs. Pt is now getting 98% of caloric needs. Pt will also lose wt as edema in feet is resolved. Pt RBG 90, AST 35, and ALT 54 are all normal. Pt Creatinine 3.10 is still high, but is slowly droping and should continue to improve with 75% of protein nees being provided at this time. Pt still has elevated BUN 27 and low Hgb 13 and Hct 39.1. Will continue to monitor pt weight and acceptance of TF. CD 01/14 TF stopped 01/12 with extubation but resumed today r/t to increased agitation and resumption of mech vent. Curretnly on jevity @ 70ml/hr meeting 103% est kcal and 77% est protein need. Creatinine has declined but cont mildly elevated at 1.7. BUN mildly elevated at 25. Alb low at 2.6. Recommend change TF to Promote at 65ml/hr to meet 94% est kcal needs and 10% est protein needs. This would avoid overfeeding r/t BMI 36.1 and provide adequate but not excessive protien. Will cont to monitor. MARIO GILES January 14, 2019 10:51
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
[2019-01-14] MEDS: ASPIRIN 81 MG CHEW FT SCH (15:44)
--- NOTE | 2019-01-14 16:11 | NUR ---
, Blank came to visit pt today. Informed nurse that she is finding "Lots of empty bottles of liquor in the house".
[2019-01-14] MEDS: MIDAZOLAM 50 MG/10 ML VIAL 250 MG in NS(*) 0.9% 250 ML BAG 200 ML IV PRN (18:34)
[2019-01-14] MEDS: LR(*) 1000 ML BAG 1,000 ML IV PRN (19:39)
[2019-01-15] VITALS (48 sets, daily range): BP systolic 111–137; BP diastolic 70–94
[2019-01-15] MEDS: AMPICILLIN/SULBACT (*) 3 GM VL 3 GM in NS(*) 0.9% 100 ML MINI-BAG 100 ML IVPB SCH ×4 (00:02→17:18)
[2019-01-15] MEDS: PROPOFOL(*)1000 MG/100 ML VIAL 100 ML IV PRN ×7 (00:02→23:49)
[2019-01-15] MEDS: LORazepam 2 MG/ML VIAL IVP PRN (03:42)
[2019-01-15] MEDS: ALBUTEROL 2.5 MG/3 ML NEB NEB PRN (04:03)
[2019-01-15 05:03] LABS: PLATELET COUNT, AUTOMATED 147 K/uL (150-450)
--- NOTE | 2019-01-15 06:40 | RADIOLOGY IMAGING REPORT ---
FACILITY: [facility] - [place] PATIENT NAME: Jaspreet Sosa : 1970 MR: [id number] V: [id number] EXAM DATE: ORDERING PHYSICIAN: DELMIS SIDHU TECHNOLOGIST: Location: [facility] [place] Patient: Jaspreet Sosa : 1970 Visit/Account:[id number] Date of Sevice: 01/15/2019 CHEST SINGLE AP 01/15/2019 06:00 hours. HISTORY: OG tube placement. COMPARISON: 01/14/2019 and studies dating to 08/14/2013. TECHNIQUE: Portable AP view of the chest. FINDINGS: Tubes/lines/hardware: ET tube terminates 3.5 cm above the nasir. OG tube is poorly seen and may have retracted. Left IJ catheter terminates at the upper cavoatrial junction. There are external chest le ads. Pulmonary/pleura: Small left pleural effusion and left basilar opacity are unchanged. No pneumothorax . Cardiomediastinal: The cardiac silhouette is at the upper limits of normal, stable. The mediastinal s ilhouette is within normal limits. Bones/soft tissues: No acute osseous abnormality. The visible abdomen is normal. IMPRESSION: 1. OG tube is poorly visualized, potentially retracted. Recommend abdominal x-ray to better evaluate. 2. No change in aeration of the lungs. Report Dictated By: Hemalatha Talbot at 01/15/2019 6:29 AM Report E-Signed By: Hemalatha Talbot at 01/15/2019 6:35 AM WSN:[id number]
[2019-01-15] MEDS ORDERED: POLYETHYLENE GLYCOL 17 GM PKT PO ONE (08:00)
[2019-01-15] MEDS ORDERED: MAGNESIUM SUL* 2 GM/50 ML IVPB 50 ML IVPB ONE (08:00)
[2019-01-15] MEDS: PANTOPRAZOLE SOD 40 MG IV VIAL IVP SCH (08:25)
[2019-01-15] MEDS: ASPIRIN 81 MG CHEW FT SCH (08:26)
[2019-01-15] MEDS: THIAMINE HCL 200 MG/2 ML INJ IVP SCH (08:26)
[2019-01-15] MEDS: ENOXAPARIN 40 MG/0.4ML SYR SC SCH (08:26)
[2019-01-15] MEDS: ORAL SUCTION/CHLORHX/SWAB KIT MT SCH ×2 (08:27→21:14)
[2019-01-15] MEDS: NS(*) 0.9% 500 ML BAG 500 ML IV PRN (08:31)
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
[2019-01-15] MEDS ORDERED: THIAMINE HCL 100 MG TAB PO SCH (09:00)
[2019-01-15] MEDS ORDERED: CARVEDILOL 3.125 MG TAB FT SCH (09:00)
[2019-01-15] MEDS: levETIRAcetam(*)500 MG/5 ML VI 500 MG in NS(*) 0.9% 100 ML BAG 100 ML IV SCH ×2 (09:38→21:14)
--- NOTE | 2019-01-15 11:17 | Antimicrobial Stewardship ---
Antimicrobial Stewardship Empiricly appropriate: Yes Comment Unasyn 3 gm IV q6h for aspiration Pneumonia. Approriate Cultures done: Yes (NGTD) Renal/Hepatic dosing: Yes Reviewed for Drug Interaction: Yes Monitored for Toxicities: Yes Comment Chest x-ray shows lungs unchanged. IV to PO Opportunity: No (Patient intubated.) Determine standard duration: usually 7 days JAMIL THOMPSON January 15, 2019 11:17
[2019-01-15] MEDS ORDERED: HYPROMELLOSE 0.4% LUB 15ML BTL OU PRN (15:20)
[2019-01-15] MEDS: ACETAMINOPHEN(*)1000 MG/100 ML 100 ML IVPB PRN (15:46)
[2019-01-15] MEDS: MIDAZOLAM 50 MG/10 ML VIAL 250 MG in NS(*) 0.9% 250 ML BAG 200 ML IV PRN (19:48)
[2019-01-16] VITALS (45 sets, daily range): BP systolic 114–135; BP diastolic 72–96
[2019-01-16] MEDS: AMPICILLIN/SULBACT (*) 3 GM VL 3 GM in NS(*) 0.9% 100 ML MINI-BAG 100 ML IVPB SCH ×4 (00:58→17:58)
[2019-01-16] MEDS: ALBUTEROL 2.5 MG/3 ML NEB NEB PRN (01:54)
[2019-01-16] MEDS: PROPOFOL(*)1000 MG/100 ML VIAL 100 ML IV PRN ×5 (03:12→21:35)
[2019-01-16 05:04] LABS: PLATELET COUNT, AUTOMATED 165 K/uL (150-450)
[2019-01-16] MEDS: LR(*) 1000 ML BAG 1,000 ML IV PRN (05:21)
--- NOTE | 2019-01-16 06:37 | RADIOLOGY IMAGING REPORT ---
FACILITY: [facility] - [place] PATIENT NAME: Jaspreet Sosa : 1970 MR: [id number] V: [id number] EXAM DATE: ORDERING PHYSICIAN: VELIA RAI TECHNOLOGIST: Location: [facility] Patient: Jaspreet Sosa : 1970 Visit/Account:[id number] Date of Sevice: 01/16/2019 Portable chest: Indication: Tube placement. Technique: A single frontal film was obtained. Comparison: 01/15/2019 Lines and tubes: The ET tube and central venous catheter remain in satisfactory position. Skeletal and soft tissue structures: Intact and unchanged. Heart and mediastinum: Stable. Lung stanley: There is persistent ill-defined opacity at both bases. No new focal findings. The vascul ar markings appear unchanged. Pleural spaces: Bilateral small effusions are suspected. There is no evidence of pneumothorax. Impression: No acute changes. Report Dictated By: Waylon Easton MD at 01/16/2019 6:28 AM Report E-Signed By: Waylon Easton MD at 01/16/2019 6:32 AM WSN:[id number]
[2019-01-16] MEDS: THIAMINE HCL 200 MG/2 ML INJ IVP SCH (09:00)
[2019-01-16] MEDS: levETIRAcetam(*)500 MG/5 ML VI 500 MG in NS(*) 0.9% 100 ML BAG 100 ML IV SCH (09:00)
[2019-01-16] MEDS: ASPIRIN 81 MG CHEW FT SCH (09:00)
[2019-01-16] MEDS: PANTOPRAZOLE SOD 40 MG IV VIAL IVP SCH (09:01)
[2019-01-16] MEDS: ORAL SUCTION/CHLORHX/SWAB KIT MT SCH ×2 (09:02→20:21)
[2019-01-16] MEDS: ENOXAPARIN 40 MG/0.4ML SYR SC SCH (09:03)
[2019-01-16] MEDS: NS(*) 0.9% 500 ML BAG 500 ML IV PRN (10:24)
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
--- NOTE | 2019-01-16 12:07 | NUR ---
ST Encounter Re-attempted completion of ST evaluation. Pt reintubated on 01/13, remains intubated and sedated. Will continue to defer eval until medically appropriate.
--- NOTE | 2019-01-16 12:23 | Medical Nutrition Therapy ---
Nutrition Anthropometrics Height (Inches): 72 Weight (Pounds): 276 Weight (Calculated Kilograms): 125.191 BMI: 37.4 Scott Nutrition Score: Adequate Scott Nutrition Risk Score: 14 Dietary Referral Nutrition Risk Factors: Nutrition Risk Comment: Physical Findings Physical Appearance: Obese BMI 30-39 Skin Appearance Skin Appearance: Edema Edema Location Modifier: Both Edema Location: Foot Type of Edema: Degree of Edema: Gastrointestinal Symptoms GI Symtoms: Constipation Tube Present: OG Bowel Sounds: Recent Bowel Pattern: Stool Characteristics: Nutritional Diagnosis Nutritional Risk Acuity 2: Tube Feed Stable Nutritional Risk Acuity 3: Alcohol abuse Past Medical History: seizures, HTN, pneumonia, pancreatitis, gall bladder disease, schizophrenia, TBI, sptal heart defect, ETOH abuse, smoke 1/PPD Nutritional Acuity: 2-Moderate Nutrition Diagnosis: Excessive Alcohol Intake Nutrition Etiology: Alcohol Addiction Nutrition Problem/Etiology/Sym: Excessive alcohol intake related to alcohol addiction as evidence by high AST 116, and ALT 137. Adjusted Energy Requirement Re: 2399 (Adj HB: BMI 34.9, 116.6kg 1.3AF) Protein Requirement: 96 (.8g/kg) Fluid Requirement: 2399 (1mL/esau) Diet Type: Tube Feeding (TF) Nutrition Intervention: Incr diet as tolerated Additional Diet Restrictions: ALLEGIES GREEN TEA Nutritional Support Current Enteral / Parental: Tube Feeding Tube Feeding Formulas: Specialty Formula (pomote) Tube Feeding Supplement Streng: Full Feeding Route: FT Placed Oralgastric Rate: 65 Current Duration: 24 Current Feeding Comment: with 11.2mls/hr propofol Current Calories: 1560 Current Protein: 98 Current Lipids Calories: 296 (from propofol at 11.2mls/hr) Total Current Calories: 1856 Automatic H2O Flush (_ml every: 108 ml 6TPD Nutrition Monitoring & Eval Nutritional Goals Comment: Tube feeding will meet nutritional needs until oral intake can meet needs RD Patient Assessment Time: [address] Assessment Type: RD Re-Assessment Patient Nutrition Acuity: 2-Moderate Follow Up Date: January 20, 2019 Nutritional Comment: 01/09 Pt admitted for seizure. Pt dx with sezure, hyponatremia, tongue laceration, lung consolidation, increased liver enzymes, HTN, hx ETOH abuse, hx TBI. Pt has increased Na to 129, but still low. Pt has elevated RBG of 198, AST 116, and ALT of 137. Recommend placing pt on a TF with full strength Jevity 1. With the goal of 87ml/hr to reach 2099 total calories. Pt will be 301 esau over energy requirements due to 475cal of lipid coming from propofol, but will meet 100% of protein needs. Recommend an additonal 646mL of additonal free water to meet fluid needs. Will continue to closely pt tolerance while on tube feed. CD 01/10 Pt is currently 60ml/hr of jevity 1. Pt would benefit from being placed on 70mL/hr of Promote. This will meet 98% of pt needs with 25.2mL/hr of propofol. Pt will receive 105g of protein, which is 113% of requirements. Pt could also benefit from 989mL of additional fluids to meet fluid needs which could be met by IV med. Will continue to monitor. CD 01/11 Pt also has elevated BUN 27, RBG 115. Pt AST 39 and ALT 59 are high, but are slowly going down. Pt also has low Hgb 13.8 and Hct 41.3. Pt has elevated creatinine 3.8 causing pt to have acute renal failure. After reevaluation suggest keeping pt on Jevity 1, but decreasing to 70mL/hr. With 25.2ml/hr of propofol, this will provide pt with 98% of caloric needs and 75% of protein needs. With pt being obese and having acute renal failure this will help to prevent wt gain and decrease stress on pt kidneys. Will continue to closely monitor. CD 01/12 Pt is doing well on 70mL/hr Jevity 1. Pt has gained 9lb since 01/08, but was on a TF that was providing 113% of caloric needs. Pt is now getting 98% of caloric needs. Pt will also lose wt as edema in feet is resolved. Pt RBG 90, AST 35, and ALT 54 are all normal. Pt Creatinine 3.10 is still high, but is slowly droping and should continue to improve with 75% of protein nees being provided at this time. Pt still has elevated BUN 27 and low Hgb 13 and Hct 39.1. Will continue to monitor pt weight and acceptance of TF. CD 01/14 TF stopped 01/12 with extubation but resumed today r/t to increased agitation and resumption of mech vent. Curretnly on jevity @ 70ml/hr meeting 103% est kcal and 77% est protein need. Creatinine has declined but cont mildly elevated at 1.7. BUN mildly elevated at 25. Alb low at 2.6. Recommend change TF to Promote at 65ml/hr to meet 94% est kcal needs and 100% est protein needs. This would avoid overfeeding r/t BMI 36.1 and provide adequate but not excessive protien. Will cont to monitor. ROSSY 01/16 TF changed to Promote at 65ml/hr. Pt is getting additional kcal from propofol which has declined to 11.2mls/hr. TF+ propofol is meeting 100% est protein needs and 77% est kcal needs. With BMI in class 2 obesity range, underfeeding is desired. Wt up 5Kg/24 hrs, probably r/t fluids. Pt tolerating TF with 0-40ml residuals. Will cont to monito. MARIO GILES January 16, 2019 12:23
[2019-01-16] MEDS: LEVETIRACETAM 500 MG/100 ML 100 ML IVPB SCH (20:21)
[2019-01-17] VITALS (48 sets, daily range): BP systolic 119–183; BP diastolic 76–130
[2019-01-17] MEDS: AMPICILLIN/SULBACT (*) 3 GM VL 3 GM in NS(*) 0.9% 100 ML MINI-BAG 100 ML IVPB SCH ×5 (00:15→23:52)
[2019-01-17] MEDS: PROPOFOL(*)1000 MG/100 ML VIAL 100 ML IV PRN ×2 (01:59→06:22)
[2019-01-17] MEDS: MIDAZOLAM 50 MG/10 ML VIAL 250 MG in NS(*) 0.9% 250 ML BAG 200 ML IV PRN (04:44)
[2019-01-17 05:03] LABS: PLATELET COUNT, AUTOMATED 169 K/uL (150-450)
--- NOTE | 2019-01-17 05:40 | RADIOLOGY IMAGING REPORT ---
FACILITY: [facility] PATIENT NAME: Jaspreet Sosa : 1970 MR: [id number] V: [id number] EXAM DATE: ORDERING PHYSICIAN: ERNST MILLER TECHNOLOGIST: Location: [facility] [place] Patient: Jaspreet Sosa : 1970 Visit/Account:[id number] Date of Sevice: 01/17/2019 CHEST SINGLE AP 01/17/2019 06:00 hours. HISTORY: Intubation. Detox. COMPARISON: 01/16/2019 and studies dating to 08/14/2013. TECHNIQUE: Portable AP view of the chest. FINDINGS: Tubes/lines/hardware: ET tube terminates 4 cm above the nasir. Left central line terminates at the u pper cavoatrial junction. There are external chest leads. Pulmonary/pleura: There are small bilateral pleural effusions and adjacent bibasilar opacities, uncha nged. No pneumothorax. Cardiomediastinal: The cardiac silhouette is at the upper limits of normal. The mediastinal silhouett e is within normal limits. Bones/soft tissues: No acute osseous abnormality. The visible abdomen is normal. IMPRESSION: 1. No significant interval change. 2. Tubes and lines as above. Report Dictated By: Hemalatha Talbot at 01/17/2019 5:34 AM Report E-Signed By: Hemalatha Talbot at 01/17/2019 5:35 AM WSN:[id number]
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
[2019-01-17] MEDS: THIAMINE HCL 200 MG/2 ML INJ IVP SCH (08:47)
[2019-01-17] MEDS: PANTOPRAZOLE SOD 40 MG IV VIAL IVP SCH (08:49)
[2019-01-17] MEDS: ENOXAPARIN 40 MG/0.4ML SYR SC SCH (08:52)
[2019-01-17] MEDS: ORAL SUCTION/CHLORHX/SWAB KIT MT SCH (08:53)
[2019-01-17] MEDS: ASPIRIN 81 MG CHEW FT SCH (08:55)
[2019-01-17] MEDS: LEVETIRACETAM 500 MG/100 ML 100 ML IVPB SCH ×2 (09:00→21:01)
[2019-01-17] MEDS: NS(*) 0.9% 500 ML BAG 500 ML IV PRN (12:54)
[2019-01-17] MEDS: LORazepam 2 MG/ML VIAL IVP PRN ×8 (13:41→23:05)
[2019-01-17] MEDS ORDERED: LORazepam 2 MG/ML VIAL IVP ONE (19:40)
[2019-01-17] MEDS ORDERED: LORazepam 2 MG/ML VIAL IVP PRN (19:40)
[2019-01-18] VITALS (51 sets, daily range): BP systolic 108–185; BP diastolic 70–151
[2019-01-18] MEDS: LORazepam 2 MG/ML VIAL IVP PRN ×8 (00:58→07:02)
[2019-01-18] MEDS: NS(*) 0.9% 1000 ML BAG 1,000 ML IV PRN ×2 (01:40→15:13)
[2019-01-18 05:25] LABS: PLATELET COUNT, AUTOMATED 192 K/uL (150-450)
[2019-01-18] MEDS ORDERED: LORazepam 2 MG/ML VIAL IVP ONE (05:30)
[2019-01-18] MEDS: AMPICILLIN/SULBACT (*) 3 GM VL 3 GM in NS(*) 0.9% 100 ML MINI-BAG 100 ML IVPB SCH ×3 (05:36→17:43)
--- NOTE | 2019-01-18 07:21 | RADIOLOGY IMAGING REPORT ---
FACILITY: [facility] PATIENT NAME: Jaspreet Sosa : 1970 MR: [id number] V: [id number] EXAM DATE: ORDERING PHYSICIAN: THEO RAI TECHNOLOGIST: Location: [facility] - [place] Patient: Jaspreet Sosa : 1970 Visit/Account:[id number] Date of Sevice: 01/18/2019 CHEST SINGLE AP 01/18/2019 06:00 hours. HISTORY: Intubated/aspiration. COMPARISON: 01/17/2019 and studies dating to 08/14/2013. TECHNIQUE: Portable AP view of the chest. FINDINGS: Tubes/lines/hardware: Patient has been extubated and the NG or OG tube removed. Left IJ catheter term inates in the mid superior vena cava. There are external chest leads. Pulmonary/pleura: Small bilateral pleural effusions are unchanged. Mild improvement in aeration of th e left lung. Mild progression of opacity in the right mid to lower lung field. No pneumothorax. Cardiomediastinal: The cardiac silhouette is at the upper limits of normal. The mediastinal silhouett e is within normal limits. Bones/soft tissues: No acute osseous abnormality. The visible abdomen is normal. IMPRESSION: 1. Mild improvement in aeration of the left lung, but progression of opacity in the right lung. 2. Small bilateral pleural effusions are unchanged. 3. Tubes and lines as above. Report Dictated By: Hemalatha Talbot at 01/18/2019 7:13 AM Report E-Signed By: Hemalatha Talbot at 01/18/2019 7:16 AM WSN:[id number]
[2019-01-18] MEDS ORDERED: DIAZEPAM 50 MG/10 ML MDV IVP PRN ×2 (08:30)
[2019-01-18] MEDS ORDERED: BISACODYL 10 MG SUPP PR PRN (08:50)
[2019-01-18] MEDS: ASPIRIN 81 MG CHEW FT SCH (09:00)
[2019-01-18] MEDS: ENOXAPARIN 40 MG/0.4ML SYR SC SCH (09:07)
[2019-01-18] MEDS: PANTOPRAZOLE SOD 40 MG IV VIAL IVP SCH (09:08)
[2019-01-18] MEDS: THIAMINE HCL 200 MG/2 ML INJ IVP SCH (09:08)
[2019-01-18] MEDS: KCL (*) 20 MEQ/100 ML PREMIX 100 ML IV SCH ×2 (09:08→10:47)
[2019-01-18] MEDS: FUROSEMIDE 20 MG/2 ML VIAL IVP SCH ×2 (09:10→20:26)
[2019-01-18] MEDS: DIAZEPAM 10 MG/2 ML SYR IVP PRN ×10 (09:10→22:22)
--- NOTE | 2019-01-18 09:15 | EKG ---
FACILITY: [facility] PATIENT NAME: CHERYL URBAN : [id number] MR: [id number] V: [id number] EXAM DATE: ORDERING PHYSICIAN: SHELTON HOLGUIN TECHNOLOGIST: GLORIA Tavares Reason : QT Blood Pressure : / mmHG Vent. Rate : 091 BPM Atrial Rate : 091 BPM P-R Int : 148 ms QRS Dur : 090 ms QT Int : 370 ms P-R-T Axes : 043 -02 -13 degrees QTc Int : 455 ms Normal sinus rhythm Possible Left atrial enlargement T wave abnormality, consider anterolateral ischemia Abnormal ECG When compared with ECG of 10-JAN-2019 06:52, No significant change was found QTc has normalized Confirmed by SHELTON HOLGUIN ([id number]) on 01/18/2019 9:20:07 AM Referred By: EZIO Confirmed By:SHELTON HOLGUIN
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
[2019-01-18] MEDS: OLANZapine 10 MG VIAL IM ONLY PRN ×5 (09:45→21:50)
[2019-01-18] MEDS: WATER STERILE 10 ML VIAL IM ONLY PRN ×4 (09:45→20:26)
[2019-01-18] MEDS ORDERED: INSULIN HUM REG 100 UN/ML 3 ML 10 UNIT, MULTIVITAMINS(*) 10 ML VIAL 10 ML, TRACE METALS... IV ONE (11:00)
[2019-01-18] MEDS: FAT EMULSION 20% 250 ML BAG 250 ML IVPB SCH (11:27)
[2019-01-18] MEDS ORDERED: INSULIN HUM LISPRO 100 UN/ML 3 ML VIAL SUBQ PRN (12:05)
[2019-01-18] MEDS: LEVETIRACETAM 500 MG/100 ML IVPB SCH (12:15)
[2019-01-18] MEDS: ENALAPRILAT 1.25 MG/ML VIAL IVP PRN ×2 (12:29→18:21)
--- NOTE | 2019-01-18 13:50 | NUR ---
ST Encounter Re-attempted completion of ST evaluation. Pt extubated on 01/17. Per RN and chart review, pt in 4pt restraints and requiring 4mg of Ativan q1hour based on CIWA. Remains lethargic, unable to consistently follow commands. Will continue to defer eval until medically appropriate.
--- NOTE | 2019-01-18 14:33 | Medical Nutrition Therapy ---
Nutrition Anthropometrics Height (Inches): 72 Weight (Pounds): 280 Weight (Calculated Kilograms): 127.006 BMI: 38.4 Scott Nutrition Score: Probably Inadequate Scott Nutrition Risk Score: 12 Dietary Referral Nutrition Risk Factors: Nutrition Risk Comment: Nutritional Diagnosis Nutritional Risk Acuity 1: TPN/PPN Nutritional Risk Acuity 3: Alcohol abuse Past Medical History: seizures, HTN, pneumonia, pancreatitis, gall bladder disease, schizophrenia, TBI, sptal heart defect, ETOH abuse, smoke 1/PPD Nutritional Acuity: 1-High Nutrition Diagnosis: Excessive Alcohol Intake Nutrition Etiology: Alcohol Addiction Nutrition Problem/Etiology/Sym: Excessive alcohol intake related to alcohol addiction as evidence by high AST 116, and ALT 137. Adjusted Energy Requirement Re: 2399 (Adj HB: BMI 34.9, 116.6kg 1.3AF) Protein Requirement: 96 (.8g/kg) Fluid Requirement: 2399 (1mL/esau) Diet Type: TPN/PPN Nutrition Intervention: Incr diet as tolerated Drug: Diuretics Additional Diet Restrictions: ALLEGIES GREEN TEA Nutritional Support Current Enteral / Parental: TPN Feeding Route: FT Placed Oralgastric Rate: 42 Current Duration: 24 Current Calories: 880 Current Protein: 50 Current Lipids Calories: 500 Total Current Calories: 1380 Recommended Enteral / Parental: TPN Recommended Rate: 75ml/hhr Recommended Duration: 24 Recommended Calories: 1584 Recommended Protein: 90 Recommended Lipids Calories: 500 Total Recommended Calories: 2084 Nutrition Monitoring & Eval Nutrition Goals: Eat 75-100% Meal RD Patient Assessment Time: [address] Assessment Type: Nutrition Support Consult Patient Nutrition Acuity: 1-High Follow Up Date: January 20, 2019 Nutritional Comment: 01/09 Pt admitted for seizure. Pt dx with sezure, hyponatremia, tongue laceration, lung consolidation, increased liver enzymes, HTN, hx ETOH abuse, hx TBI. Pt has increased Na to 129, but still low. Pt has elevated RBG of 198, AST 116, and ALT of 137. Recommend placing pt on a TF with full strength Jevity 1. With the goal of 87ml/hr to reach 2099 total calories. Pt will be 301 esau over energy requirements due to 475cal of lipid coming from propofol, but will meet 100% of protein needs. Recommend an additonal 646mL of additonal free water to meet fluid needs. Will continue to closely pt tolerance while on tube feed. CD 01/10 Pt is currently 60ml/hr of jevity 1. Pt would benefit from being placed on 70mL/hr of Promote. This will meet 98% of pt needs with 25.2mL/hr of propofol. Pt will receive 105g of protein, which is 113% of requirements. Pt could also benefit from 989mL of additional fluids to meet fluid needs which could be met by IV med. Will continue to monitor. CD 01/11 Pt also has elevated BUN 27, RBG 115. Pt AST 39 and ALT 59 are high, but are slowly going down. Pt also has low Hgb 13.8 and Hct 41.3. Pt has elevated creatinine 3.8 causing pt to have acute renal failure. After reevaluation suggest keeping pt on Jevity 1, but decreasing to 70mL/hr. With 25.2ml/hr of propofol, this will provide pt with 98% of caloric needs and 75% of protein needs. With pt being obese and having acute renal failure this will help to prevent wt gain and decrease stress on pt kidneys. Will continue to closely monitor. CD 01/12 Pt is doing well on 70mL/hr Jevity 1. Pt has gained 9lb since 01/08, but was on a TF that was providing 113% of caloric needs. Pt is now getting 98% of caloric needs. Pt will also lose wt as edema in feet is resolved. Pt RBG 90, AST 35, and ALT 54 are all normal. Pt Creatinine 3.10 is still high, but is slowly droping and should continue to improve with 75% of protein nees being provided at this time. Pt still has elevated BUN 27 and low Hgb 13 and Hct 39.1. Will continue to monitor pt weight and acceptance of TF. CD 01/14 TF stopped 01/12 with extubation but resumed today r/t to increased agitation and resumption of mech vent. Curretnly on jevity @ 70ml/hr meeting 103% est kcal and 77% est protein need. Creatinine has declined but cont mildly elevated at 1.7. BUN mildly elevated at 25. Alb low at 2.6. Recommend change TF to Promote at 65ml/hr to meet 94% est kcal needs and 100% est protein needs. This would avoid overfeeding r/t BMI 36.1 and provide adequate but not excessive protien. Will cont to monitor. BK 01/16 TF changed to Promote at 65ml/hr. Pt is getting additional kcal from propofol which has declined to 11.2mls/hr. TF+ propofol is meeting 100% est protein needs and 77% est kcal needs. With BMI in class 2 obesity range, underfeeding is desired. Wt up 5Kg/24 hrs, probably r/t fluids. Pt tolerating TF with 0-40ml residuals. Will cont to monitor. BK 01/18 Pt extubated, TF stopped. TPN started today as pt inappropirate for oral intake. TPN at final rate of 75ml/hr + lipids would provide 2084 kcal meeting 87% est kcal needs and 90gm protein meeting 94% est protein needs. Pt is obese with underfeeding desired. Wti is up 7k since admision. Pt started on K+ depeting duiretic. Currenty K+ is WNR at 4. Will cont to monitor. MARIO GILES January 18, 2019 14:32
[2019-01-18] MEDS: ACETAMINOPHEN(*)1000 MG/100 ML 100 ML IVPB PRN ×2 (16:10→22:28)
[2019-01-18] MEDS ORDERED: KETAMINE HCL-NS 50 MG/5 ML SYR IVP ONE (16:30)
[2019-01-18] MEDS ORDERED: PROPOFOL(*)1000 MG/100 ML VIAL 100 ML IV PRN (16:30)
[2019-01-18] MEDS ORDERED: SUCCINYLCHOL CHL 200MG/10ML VL IVP ONE (16:30)
[2019-01-18] MEDS ORDERED: fentaNYL CITR 100 MCG/2 ML AMP IVP ONE (16:30)
[2019-01-19] VITALS (48 sets, daily range): BP systolic 118–224; BP diastolic 52–149
[2019-01-19] MEDS: LEVETIRACETAM 500 MG/100 ML IVPB SCH ×3 (00:02→23:03)
[2019-01-19] MEDS: AMPICILLIN/SULBACT (*) 3 GM VL 3 GM in NS(*) 0.9% 100 ML MINI-BAG 100 ML IVPB SCH ×2 (00:13→05:46)
[2019-01-19] MEDS: ENALAPRILAT 1.25 MG/ML VIAL IVP PRN ×2 (00:44→21:42)
[2019-01-19] MEDS: DIAZEPAM 10 MG/2 ML SYR IVP PRN ×10 (01:13→23:19)
[2019-01-19 05:09] LABS: PLATELET COUNT, AUTOMATED 239 K/uL (150-450)
--- NOTE | 2019-01-19 07:11 | EKG ---
FACILITY: [facility] PATIENT NAME: CHERYL URBAN : [id number] MR: [id number] V: [id number] EXAM DATE: ORDERING PHYSICIAN: SHELTON HOLGUIN TECHNOLOGIST: Test Reason : Blood Pressure : / mmHG Vent. Rate : 098 BPM Atrial Rate : 098 BPM P-R Int : 140 ms QRS Dur : 096 ms QT Int : 372 ms P-R-T Axes : 044 009 139 degrees QTc Int : 474 ms Normal sinus rhythm Possible Left atrial enlargement Marked T wave abnormality, consider anterolateral ischemia Prolonged QT Abnormal ECG When compared with ECG of 18-JAN-2019 09:06, No significant change was found Confirmed by KATHY WOLF ([id number]) on 01/19/2019 9:01:36 PM Referred By: Confirmed By:KATHY WOLF
[2019-01-19] MEDS: OLANZapine 10 MG VIAL IM ONLY PRN ×3 (07:22→22:56)
[2019-01-19] MEDS: PANTOPRAZOLE SOD 40 MG IV VIAL IVP SCH (08:42)
[2019-01-19] MEDS: ENOXAPARIN 40 MG/0.4ML SYR SC SCH (08:44)
[2019-01-19] MEDS: THIAMINE HCL 200 MG/2 ML INJ IVP SCH (08:59)
[2019-01-19] MEDS: FUROSEMIDE 20 MG/2 ML VIAL IVP SCH (09:22)
--- NOTE | 2019-01-19 10:55 | Medical Nutrition Therapy ---
Nutrition Anthropometrics Height (Inches): 72 Weight (Pounds): 281 Weight (Calculated Kilograms): 127.658 BMI: 38.2 Scott Nutrition Score: Probably Inadequate Scott Nutrition Risk Score: 12 Dietary Referral Nutrition Risk Factors: Nutrition Risk Comment: Physical Findings Physical Appearance: Obese BMI 30-39 Skin Appearance Skin Appearance: Edema Edema Location Modifier: Both Edema Location: Foot Type of Edema: Degree of Edema: Gastrointestinal Symptoms GI Symtoms: Constipation Tube Present: OG Bowel Sounds: Recent Bowel Pattern: Stool Characteristics: Nutritional Diagnosis Nutritional Risk Acuity 1: TPN/PPN Nutritional Risk Acuity 3: Alcohol abuse Past Medical History: seizures, HTN, pneumonia, pancreatitis, gall bladder disease, schizophrenia, TBI, sptal heart defect, ETOH abuse, smoke 1/PPD Nutritional Acuity: 1-High Nutrition Diagnosis: Excessive Alcohol Intake Nutrition Etiology: Alcohol Addiction Nutrition Problem/Etiology/Sym: Excessive alcohol intake related to alcohol addiction as evidence by high AST 116, and ALT 137. Adjusted Energy Requirement Re: 2399 (Adj HB: BMI 34.9, 116.6kg 1.3AF) Protein Requirement: 96 (.8g/kg) Fluid Requirement: 2399 (1mL/esau) Diet Type: TPN/PPN Nutrition Intervention: Incr diet as tolerated Drug: Diuretics Additional Diet Restrictions: ALLEGIES GREEN TEA Nutritional Support Current Enteral / Parental: TPN Feeding Route: FT Placed Oralgastric Rate: 83 Current Duration: 24 Current Calories: 1752 Current Protein: 100 Current Lipids Calories: 500 Total Current Calories: 2252 Nutrition Monitoring & Eval Nutritional Goals Comment: TPN is meeting nutrtional needs RD Patient Assessment Time: [address] Assessment Type: RD Re-Assessment Patient Nutrition Acuity: 1-High Follow Up Date: January 22, 2019 Nutritional Comment: 01/09 Pt admitted for seizure. Pt dx with sezure, hyponatremia, tongue laceration, lung consolidation, increased liver enzymes, HTN, hx ETOH abuse, hx TBI. Pt has increased Na to 129, but still low. Pt has elevated RBG of 198, AST 116, and ALT of 137. Recommend placing pt on a TF with full strength Jevity 1. With the goal of 87ml/hr to reach 2099 total calories. Pt will be 301 esau over energy requirements due to 475cal of lipid coming from propofol, but will meet 100% of protein needs. Recommend an additonal 646mL of additonal free water to meet fluid needs. Will continue to closely pt tolerance while on tube feed. CD 01/10 Pt is currently 60ml/hr of jevity 1. Pt would benefit from being placed on 70mL/hr of Promote. This will meet 98% of pt needs with 25.2mL/hr of propofol. Pt will receive 105g of protein, which is 113% of requirements. Pt could also benefit from 989mL of additional fluids to meet fluid needs which could be met by IV med. Will continue to monitor. CD 01/11 Pt also has elevated BUN 27, RBG 115. Pt AST 39 and ALT 59 are high, but are slowly going down. Pt also has low Hgb 13.8 and Hct 41.3. Pt has elevated creatinine 3.8 causing pt to have acute renal failure. After reevaluation suggest keeping pt on Jevity 1, but decreasing to 70mL/hr. With 25.2ml/hr of propofol, this will provide pt with 98% of caloric needs and 75% of protein needs. With pt being obese and having acute renal failure this will help to prevent wt gain and decrease stress on pt kidneys. Will continue to closely monitor. CD 01/12 Pt is doing well on 70mL/hr Jevity 1. Pt has gained 9lb since 01/08, but was on a TF that was providing 113% of caloric needs. Pt is now getting 98% of caloric needs. Pt will also lose wt as edema in feet is resolved. Pt RBG 90, AST 35, and ALT 54 are all normal. Pt Creatinine 3.10 is still high, but is slowly droping and should continue to improve with 75% of protein nees being provided at this time. Pt still has elevated BUN 27 and low Hgb 13 and Hct 39.1. Will continue to monitor pt weight and acceptance of TF. CD 01/14 TF stopped 01/12 with extubation but resumed today r/t to increased agitation and resumption of mech vent. Curretnly on jevity @ 70ml/hr meeting 103% est kcal and 77% est protein need. Creatinine has declined but cont mildly elevated at 1.7. BUN mildly elevated at 25. Alb low at 2.6. Recommend change TF to Promote at 65ml/hr to meet 94% est kcal needs and 100% est protein needs. This would avoid overfeeding r/t BMI 36.1 and provide adequate but not excessive protien. Will cont to monitor. BK 01/16 TF changed to Promote at 65ml/hr. Pt is getting additional kcal from propofol which has declined to 11.2mls/hr. TF+ propofol is meeting 100% est protein needs and 77% est kcal needs. With BMI in class 2 obesity range, underfeeding is desired. Wt up 5Kg/24 hrs, probably r/t fluids. Pt tolerating TF with 0-40ml residuals. Will cont to monitor. BK 01/18 Pt extubated, TF stopped. TPN started today as pt inappropirate for oral intake. TPN at final rate of 75ml/hr + lipids would provide 2084 kcal meeting 87% est kcal needs and 90gm protein meeting 94% est protein needs. Pt is obese with underfeeding desired. Wti is up 7k since admision. Pt started on K+ depeting duiretic. Currenty K+ is WNR at 4. Will cont to monitor. BK 01/19 Pt cont on TPN which advanced to 83ml/hr meeting 94% est kcal and 104% est protein needs. Cont to monitor MARIO GILES January 19, 2019 10:55
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
[2019-01-19] MEDS: FAT EMULSION 20% 250 ML BAG 250 ML IVPB SCH (11:50)
[2019-01-19] MEDS: INS HUM REG* 100 U/ML(ER ONLY) 20 UNIT, MULTIVITAMINS(*) 10 ML VIAL 10 ML, TRACE METALS... IV SCH (11:50)
[2019-01-19] MEDS: LOPERAMIDE HCL 1 MG/5 ML UDC PO PRN ×2 (17:20→20:00)
[2019-01-19] MEDS: NS(*) 0.9% 1000 ML BAG 1,000 ML IV PRN (19:59)
[2019-01-19] MEDS ORDERED: FUROSEMIDE 40 MG/4 ML VIAL IVP SCH (21:00)
[2019-01-20] VITALS (47 sets, daily range): BP systolic 103–170; BP diastolic 63–117
[2019-01-20] MEDS: DIAZEPAM 10 MG/2 ML SYR IVP PRN (00:30)
[2019-01-20] MEDS: OLANZapine 10 MG VIAL IM ONLY PRN (00:31)
[2019-01-20] MEDS: ACETAMINOPHEN(*)1000 MG/100 ML 100 ML IVPB PRN ×2 (02:17→19:55)
[2019-01-20 05:07] LABS: PLATELET COUNT, AUTOMATED 249 K/uL (150-450)
[2019-01-20] MEDS ORDERED: KCL (*) 20 MEQ/100 ML PREMIX 100 ML IV ONE ×2 (06:45→12:00)
[2019-01-20] MEDS ORDERED: NS(*) 0.9% 1000 ML BAG 1,000 ML IV PRN (07:36)
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
--- NOTE | 2019-01-20 07:46 | RADIOLOGY IMAGING REPORT ---
FACILITY: [facility] PATIENT NAME: Jaspreet Sosa : 1970 MR: [id number] V: [id number] EXAM DATE: ORDERING PHYSICIAN: THEO RAI TECHNOLOGIST: Location: [facility] [place] Patient: Jaspreet Sosa : 1970 Visit/Account:[id number] Date of Sevice: 01/20/2019 CHEST SINGLE AP 01/20/2019 07:21 hours. HISTORY: Previous aspiration. COMPARISON: 01/18/2019 and studies dating to 08/14/2013. TECHNIQUE: Portable AP view of the chest. FINDINGS: Tubes/lines/hardware: Left IJ catheter terminates in the mid superior vena cava. There are external c hest leads. Pulmonary/pleura: Interval improvement in aeration of the right lung. No change in aeration of the le ft lung. No pneumothorax. Stable small bilateral pleural effusions. Cardiomediastinal: The cardiac silhouette is at the upper limits of normal. The mediastinal silhouett e is within normal limits. Bones/soft tissues: No acute osseous abnormality. The visible abdomen is normal. IMPRESSION: 1. Improvement in aeration of the right lung. 2. Stable small bilateral pleural effusions. 3. Stable aeration of the left lung. Report Dictated By: Hemalatha Talbot at 01/20/2019 7:39 AM Report E-Signed By: Hemalatha Talbot at 01/20/2019 7:42 AM WSN:[id number]
[2019-01-20] MEDS: THIAMINE HCL 200 MG/2 ML INJ IVP SCH (08:55)
[2019-01-20] MEDS: PANTOPRAZOLE SOD 40 MG IV VIAL IVP SCH (09:00)
[2019-01-20] MEDS: ENOXAPARIN 40 MG/0.4ML SYR SC SCH (09:00)
--- NOTE | 2019-01-20 10:36 | NUR ---
ST Encounter Bedside dysphagia assessment complete. Please refer to full report for detailed information. Recommendations: Diet: pureed solids, nectar thick liquids, small/frequent snacks vs 3 large meals Medications: crushed in puree; if unable to crush, recommend non-oral delivery. Compensatory strategies: upright positioning during PO intake, upright positioning 45 min after PO intake, regular oral care, limit distractions during meals, one bite/sip at a time, tsp sized bite/sips, feed the patient, liquids and solids via spoon only, alternate 2-3 bites of pureed solids with a sip of nectar thick liquids, take rest breaks for respiration. Supervision during PO intake: constant supervision / feed the patient. MBS may be warranted following stabilization in general health and respiratory status
[2019-01-20] MEDS: LEVETIRACETAM 500 MG/100 ML IVPB SCH ×2 (11:36→23:09)
[2019-01-20] MEDS: INS HUM REG* 100 U/ML(ER ONLY) 20 UNIT, MULTIVITAMINS(*) 10 ML VIAL 10 ML, TRACE METALS... IV SCH (11:38)
[2019-01-20] MEDS: FAT EMULSION 20% 250 ML BAG 250 ML IVPB SCH (11:38)
--- NOTE | 2019-01-20 12:30 | SLP BEDSIDE SWALLOW EVALUATION ---
SPEECH THERAPY inspector boiler: Nellie Schmid MS, CCC-[facility] Type of Assessment: Bedside dysphagia Evaluation Patient: Jaspreet Vidal : [birth year] Evaluation Date: 01/20/2018 BACKGROUND The patient is a 48 yo old male admitted to [facility] on 01/08/19 with seizures, alcohol withdrawal. He developed severe withdrawal symptoms requiring mechanical ventiliation. He was initially intubated on, extubated on 01/12, re-intubated on 01/13, extubated on 01/17. He was sedated and agitated during the subsequent 2-3 days status post extubation. An ST evaluation was ordered to analyze swallow function s/p repeated intubations. Primary Medical Diagnosis:alcohol withdrawal Medical hx:.TBI, HTN, PE, ETOH abuse Pain Scale (0-10): Patient w/ no reports of pain. LOC / Participation: alert, cooperative, confused, somewhat lethargic Follows instructions: yes, single-level Orientation: A&O to self, location, caregivers/family. Functional Communication Deficits impact swallow function/safety, or response to therapy: yes; recommend a staff or family member feed the pt VOICE Vocal Deficits: shallow breath support, notably reduced speaking volume, somewhat breathy vocal quality, garbled / muffled speech. DYSPHAGIA Sialorrhea: No Xerostomia: Yes Supplemental Oxygen Use: Yes. Oxygen Saturation: >93% COPD Dx: Pain with Swallow: Denies Pt was seen at the bedside for clinical swallowing assessment. Spouse and sister present throughout encounter. Pt was alert and participatory, though somewhat lethargic and confused to current situation. Verbal communication was difficult secondary to vocal deficits as described above, in addition to consonant imprecision and subsequently decreased speech intelligibility (~40% in conversation). Oromotor exam was remarkable for generalized weakness of oral musculature, including the lips, tongue, and jaw. ROM was also reduced. Some lingual swelling was observed, likely associated with tongue laceration from bite associated with seizure. Pt able to elicit a weak, wet cough when prompted. Administered PO trials of thin, nectar, and honey thick liquids via tsp, in addition to pureed solids via tsp. Pt unable to self-administer due to bilateral upper extremity weakness. Overall, the pt exhibits moderate oral and probable pharyngeal dysphagia associated with generalized deconditioning, repeated intubations, and sedation. Oral weakness and reduced respiratory support resulted in execution of swallow with an opened oral cavity, poor anterior to posterior bolus propulsion, and diffuse post-swallow residue. Pt responded to cues to maintain a tight labial seal during swallow. Alternation of liquids and solids assisted with oral cavity clearance. Pharyngeally, an immediate cough response was consistently observed with attempts to administer tsp sized-trials of thin liquids. No overt indicators of aspiration were noted with nectar or honey thick consistencies. Pt endorsed sensation of some residual material in his pharynx. This was alleviated with a second dry swallow At this time, recommend a pureed diet with nectar thick liquids. Further recommend that the pt is fed by staff or family members using a spoon for administration of all PO intake. Discussed results and recommendations at length with the pt, family, and RN. Written information posted at the bedside. Respiratory/Swallow Coordination: Poor. Difficulty ceasing breathing pattern to initiate pharyngeal swallow. Open oral cavity for oral breathing with bolus preparation and swallow execution in the absence of direct cues. ST ASSESSMENT SUMMARY Recommendations: Diet: pureed solids, nectar thick liquids, small/training meals only Medications: crushed in puree; if unable to crush, recommend non-oral delivery. Compensatory strategies: upright positioning during PO intake, upright positioning 45 min after PO intake, regular oral care, limit distractions during meals, one bite/sip at a time, tsp sized bite/sips, feed the patient, liquids and solids via spoon only, alternate 2-3 bites of pureed solids with a sip of nectar thick liquids, take rest breaks for respiration. Supervision during PO intake: constant / feed the patient. MBS may be warranted following stabilization in general health and respiratory status Aspiration Risk: moderately increased 2nd compromised respiratory status, overt s/sx of aspiration with thin liquids, hx of esophageal dysphagia. BOY: level 3, moderate dysphagia, 2 diet consistencies restricted, constant supervision with PO Speech Therapy Need ST will continue to analyze oropharyngeal swallow status and make appropriate diet advancement recommendations. ST will also continue to provide educational information re: compensatory strategies to minimize risk for aspiration pneumonia and promote safe, efficient tolerance of least restrictive diet. Will consider completion of MBSS pending stabilization in general health and respiratory status PLAN OF CARE Short Term Goals 1. Patient and caregivers will receive ongoing education re: safe swallow precautions, diet modification recommendations, and compensatory techniques, and will provide verbal/visual demonstration of comprehension with 100% accuracy. 2. The patient will safely and efficiently tolerate a regular diet and thin liquids with independent implementation of safe swallow strategies and minimized s/s of dysphagia. Rehabilitation Prognosis: Good. Strong family support. High PLOF. Thank you for this referral. Nellie Schmid M.S., [facility] Speech Therapist [*] BRITTANIE
--- NOTE | 2019-01-20 15:42 | NUR ---
Physical Therapy Impression 3 attempts were made to evaluate Pt. All 3 times, nursing strongly requested not to wake stating, "he has not slept in days". Will attempt eval tomorrow. Physical Therapy Goals Patient's Goals
--- NOTE | 2019-01-20 15:54 | NUR ---
Occupational Therapy Impression Attempted eval 3x, RN stated pt. sleeping and not to wake for therapy. Will attempt OT eval on 01/23/19. Occupational Therapy Goals Patient's Goal
[2019-01-21] VITALS (30 sets, daily range): BP systolic 92–152; BP diastolic 55–107
[2019-01-21] MEDS: OLANZapine 10 MG VIAL IM ONLY PRN ×2 (00:06→01:52)
[2019-01-21] MEDS: WATER STERILE 10 ML VIAL IM ONLY PRN (00:06)
[2019-01-21 06:34] LABS: PLATELET COUNT, AUTOMATED 273 K/uL (150-450)
[2019-01-21] MEDS ORDERED: MAGNESIUM SUL* 2 GM/50 ML IVPB 50 ML IVPB ONE (07:30)
[2019-01-21] MEDS: PANTOPRAZOLE SOD 40 MG IV VIAL IVP SCH (08:15)
[2019-01-21] MEDS: ENOXAPARIN 40 MG/0.4ML SYR SC SCH (08:16)
[2019-01-21] MEDS: THIAMINE HCL 200 MG/2 ML INJ IVP SCH (08:16)
[2019-01-21] MEDS: FUROSEMIDE 20 MG/2 ML VIAL IVP SCH ×2 (08:17→21:14)
[2019-01-21] MEDS: KCL (*) 20 MEQ/100 ML PREMIX 100 ML IV SCH ×4 (09:30→15:15)
--- NOTE | 2019-01-21 09:47 | NUR ---
Physical Therapy Impression PT wilfrido shukla, RN present throughout session. ModA x1 for Supine to sit, modA x2 for sit to supine. Diane/CGA for sitting balance at EOB. PT instruction for STS transfer with RW. Pt requires moda-maxA x2 for STS, with knee block provided to prevent knee buckling. Pt unable to fully rise to standing position, 2 STS transfers completed. VSS throughout session, rec RN use EZ lift for future transfers. Recommendation pending progress. Physical Therapy Goals 1: Pt to complete bed mobility with SBA 2: Pt to complete transfers with SBA and RW 3: Pt to ambulate 150' with SBA and RW 4: Pt to asc/desc 2 steps with CGA Patient's Goals
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
[2019-01-21] MEDS: FAT EMULSION 20% 250 ML BAG 250 ML IVPB SCH ×2 (11:44→11:48)
[2019-01-21] MEDS: INS HUM REG* 100 U/ML(ER ONLY) 20 UNIT, MULTIVITAMINS(*) 10 ML VIAL 10 ML, TRACE METALS... IV SCH (11:48)
[2019-01-21] MEDS: ACETAMINOPHEN(*)1000 MG/100 ML 100 ML IVPB PRN (17:34)
[2019-01-21] MEDS ORDERED: WATER STERILE 10 ML VIAL IM ONLY SCH (21:00)
[2019-01-21] MEDS ORDERED: OLANZapine 10 MG VIAL IM ONLY SCH (21:00)
[2019-01-21] MEDS: MELATONIN 3 MG TAB PO SCH (21:14)
[2019-01-21] MEDS: OLANZapine ZYDIS ODT 5MG TABDP PO SCH (21:14)
[2019-01-22] VITALS (15 sets, daily range): BP systolic 104–138; BP diastolic 62–95
[2019-01-22 05:13] LABS: PLATELET COUNT, AUTOMATED 276 K/uL (150-450)
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
[2019-01-22] MEDS: FOLIC ACID/CYANOCOB/PYRIDOXINE PO SCH (09:09)
[2019-01-22] MEDS: ENOXAPARIN 40 MG/0.4ML SYR SC SCH (09:09)
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
[2019-01-22] MEDS ORDERED: INS HUM REG* 100 U/ML(ER ONLY) 20 UNIT, MULTIVITAMINS(*) 10 ML VIAL 10 ML, TRACE METALS... IV SCH ×2 (11:00→11:30)
[2019-01-22] MEDS: ACETAMINOPHEN 325 MG TAB PO PRN (17:26)
[2019-01-22] MEDS: OLANZapine ZYDIS ODT 5MG TABDP PO SCH (20:50)
[2019-01-22] MEDS: MELATONIN 3 MG TAB PO SCH (20:50)
[2019-01-23 03:11] VITALS: BP 140/90
[2019-01-23 06:58] VITALS: BP 141/89
[2019-01-23] MEDS: FOLIC ACID/CYANOCOB/PYRIDOXINE PO SCH (08:11)
[2019-01-23] MEDS: ACETAMINOPHEN 325 MG TAB PO PRN ×2 (08:12→14:16)
[2019-01-23] MEDS: ENOXAPARIN 40 MG/0.4ML SYR SC SCH (08:12)
--- NOTE | 2019-01-23 08:40 | NUR ---
ST Encounter Pt seen at bedside for re-analysis of swallow function to determine readiness for diet advancement. Swallow function much improved vs initial evaluation. Voice also significantly improved with 100% intelligibility, no persistent hoarseness or breathy vocal quality. Pt consumed regular solids and thin liquids with no overt indicators of aspiration or notable oropharyngeal dysphagia. Goals have been met. ST to discontinue dysphagia interventions. Informally screened cognitive linguistic status with interview questions and discussion with pt/spouse. Both perceive a return to baseline from a cognitive linguistic standpoint, with residual short-term memory deficits associated with hx of TBI. Will f/u with PT/OT/RN to determine potential need for formal evaluation if deficits are observed during functional tasks (e.g., ADLs, ambulation). However, suspect pt is at or close to baseline. Recommendations: Diet: regular solids, thin liquids, regular meal schedule Medications: whole with thin liquids. Compensatory strategies: upright positioning during PO intake, upright positioning 45 min after PO intake, regular oral care, one bite/sip at a time, take rest breaks for respiration as needed. Supervision during PO intake: no longer warranted.
--- NOTE | 2019-01-23 09:27 | NUR ---
Physical Therapy Impression PT/OT co treatment with time split for billing purposes. Pt with fall over the weekend, reports that he attempted to ambulate to/from the bathroom without assistance. Diane for STS transfers with cues for hand placement with RW. AMbulation x60' with RW and CGA x 2, cues for proximity to walker and safety with ambulation. SpO2 dropped to 82% on room air with ambulation, returned to WNL on 2L. Pt left up in chair with chair alarm in place and call light in reach, O2 donned. Recommendation pending progress. Physical Therapy Goals 1: Pt to complete bed mobility with SBA 2: Pt to complete transfers with SBA and RW 3: Pt to ambulate 150' with SBA and RW 4: Pt to asc/desc 2 steps with CGA Patient's Goals
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
[2019-01-23 11:02] VITALS: BP 141/92
--- NOTE | 2019-01-23 12:52 | NUR ---
Occupational Therapy Impression OT evaluation completed with PT. Pt. provided with [facility] phone # in order to acquire FWW for home use. Pt. would benefit from OT services 5x/week to increase independence in ADL's. OT recommends HH upon pt.'s d/c to home. Occupational Therapy Goals 1. Pt. to perform dressing activities with I. 2. Pt. to perform showering activities with Mod I. 3. Pt. to perform toileting activities with Mod I. 4. Pt. to perform grooming activities with I. Patient's Goal
[2019-01-23 14:20] VITALS: BP 153/108
[2019-01-23] MEDS: LISINOPRIL 10 MG TAB PO SCH (14:50)
[2019-01-23 19:54] VITALS: BP 148/98
[2019-01-23] MEDS: MELATONIN 3 MG TAB PO SCH (21:18)
[2019-01-23] MEDS: OLANZapine ZYDIS ODT 5MG TABDP PO SCH (21:18)
[2019-01-24 04:55] VITALS: BP 151/105
[2019-01-24 06:51] VITALS: BP 151/101
[2019-01-24 07:10] VITALS: BP 145/99
[2019-01-24] MEDS ORDERED: HYDROCHLOROTHIAZIDE 25 MG TAB PO SCH (09:00)
[2019-01-24] MEDS: LISINOPRIL 10 MG TAB PO SCH (09:10)
[2019-01-24] MEDS: FOLIC ACID/CYANOCOB/PYRIDOXINE PO SCH (09:10)
[2019-01-24] MEDS: ENOXAPARIN 40 MG/0.4ML SYR SC SCH (09:11)
--- NOTE | 2019-01-24 10:22 | NUR ---
SW delivered pt's Medicare Message this am and pt requested info on substance abuse counseling and AA. SW printed list off and delivered to pt. Pt reports no additional needs.
[2019-01-24] MEDS ORDERED: MELA3TAB31 PO (10:29)
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
--- NOTE | 2019-01-24 14:04 | NUR ---
Physical Therapy Impression Pt discharged from med surg prior to PT visit planned at 1330 to address stair negotiation. Pt declined [facility] services per [facility], but did obtain a walker. Physical Therapy Goals 1: Pt to complete bed mobility with SBA 2: Pt to complete transfers with SBA and RW 3: Pt to ambulate 150' with SBA and RW 4: Pt to asc/desc 2 steps with CGA Patient's Goals
== END 2019-01-24 13:15 | disposition home or self-care (01) | DRG 896 ==
LOC: ER 12:34 → ICU 15:55 → MED 01-22 15:00
PROVIDERS: ADMIT Internal Medicine; ATTEND Internal Medicine
PROC: 5A1955Z Respiratory Ventilation, Greater than 96 Consecutive Hours (ICD-10-PCS; 2019-01-08)
PROC: 0BH17EZ Insertion of Endotracheal Airway into Trachea, Via Natural or Artificial Opening (ICD-10-PCS; 2019-01-08)
PROC: 0DH67UZ Insertion of Feeding Device into Stomach, Via Natural or Artificial Opening (ICD-10-PCS; 2019-01-09)
PROC: 3E0G76Z Introduction of Nutritional Substance into Upper GI, Via Natural or Artificial Opening (ICD-10-PCS; 2019-01-09)
PROC: 02HV33Z Insertion of Infusion Device into Superior Vena Cava, Percutaneous Approach (ICD-10-PCS; principal; 2019-01-10)
PROC: 0BH17EZ Insertion of Endotracheal Airway into Trachea, Via Natural or Artificial Opening (ICD-10-PCS; 2019-01-13)
DX: F10.231 Alcohol dependence with withdrawal delirium (principal); N17.0 Acute kidney failure with tubular necrosis; J96.00 Acute respiratory failure, unspecified whether with hypoxia or hypercapnia; E87.1 Hypo-osmolality and hyponatremia; I47.2 Ventricular tachycardia; F17.210 Nicotine dependence, cigarettes, uncomplicated; E86.0 Dehydration; S01.512A Laceration without foreign body of oral cavity, initial encounter; R74.0 Nonspecific elevation of levels of transaminase and lactic acid dehydrogenase [LDH]; G40.909 Epilepsy, unspecified, not intractable, without status epilepticus; I10 Essential (primary) hypertension; Q21.9 Congenital malformation of cardiac septum, unspecified; I95.2 Hypotension due to drugs; T46.4X5A Adverse effect of angiotensin-converting-enzyme inhibitors, initial encounter; T42.75XA Adverse effect of unspecified antiepileptic and sedative-hypnotic drugs, initial encounter; T17.998A Other foreign object in respiratory tract, part unspecified causing other injury, initial encounter; Y92.230 Patient room in hospital as the place of occurrence of the external cause; Y90.0 Blood alcohol level of less than 20 mg/100 ml; E87.70 Fluid overload, unspecified; Z88.8 Allergy status to other drugs, medicaments and biological substances; Z87.820 Personal history of traumatic brain injury
CPT/HCPCS: 36415; 36416; 36600; 70360; 70450; 71045; 74018; 80305; 80320; 81001; 82040; 82247; 82310; 82374; 82435; 82550; 82565; 82803; 82947; 82948; 83605; 83735; 84075; 84132; 84155; 84295; 84450; 84460; 84478; 84484; 84520; 85025; 85610; 85730; 87040; 87324; 87449; 93005; 93306; 94002; 94003; 94640; 94660; 94667; 94668; 94770; 96361; 96365; 96375; 97161; 97165; 99285; A4216; C1758; C9113; J0131; J0295; J0330; J1200; J1650; J1815; J1885; J1940; J1953; J2060; J2250; J2270; J2704; J2930; J3010; J3360; J3411; J3475; J3480; J3490; J7030; J7040; J7050; J7060; J7120; J7613; P9045

== ENCOUNTER → 2019-02-15 | Outpatient (CLI) | payer MEDICARE, MEDICAID ==
[~2019-02-15] MED LIST changes: +AMOX-559 PO; +BUDE10.2 PO; +BUSP30TA18 PO; +ESCI10TA8 PO; +HYDR25CA13 PO; +MELA3TAB31 PO
[2019-02-15 13:47] LABS: PLATELET COUNT, AUTOMATED 216 K/uL (150-450)
[2019-02-15 15:41] LABS: LDL CHOLESTEROL 117 mg/dl
--- NOTE | 2019-02-16 10:57 | EKG ---
FACILITY: [facility] [place] PATIENT NAME: CHERYL URBAN : [id number] MR: [id number] V: [id number] EXAM DATE: ORDERING PHYSICIAN: RANI GERONIMO TECHNOLOGIST: TREV Test Reason : HYPERTENSION Blood Pressure : / mmHG Vent. Rate : 075 BPM Atrial Rate : 075 BPM P-R Int : 166 ms QRS Dur : 104 ms QT Int : 370 ms P-R-T Axes : 048 -05 069 degrees QTc Int : 413 ms Sinus rhythm Left axis Probable left atrial enlargement Nonspecific interventricular conduction delay Diffuse T wave abnormalities Abnormal ECG Similar to 01/19/19 Confirmed by THEO RAI ([id number]) on 02/16/2019 2:15:12 PM Referred By: EDELMIRA Confirmed By:THEO RAI
== END ==
LOC: LAB 13:32
PROVIDERS: ATTEND Internal Medicine
DX: F10.239 Alcohol dependence with withdrawal, unspecified (principal); F41.1 Generalized anxiety disorder; R56.9 Unspecified convulsions; I10 Essential (primary) hypertension; R94.31 Abnormal electrocardiogram [ECG] [EKG]
CPT/HCPCS: 36415; 82040; 82247; 82310; 82374; 82435; 82465; 82565; 82947; 83718; 83735; 84075; 84132; 84155; 84295; 84443; 84450; 84460; 84478; 84520; 85025

== ENCOUNTER → 2019-02-28 | Outpatient (CLI) | payer MEDICARE, MEDICAID ==
[~2019-02-28] MED LIST changes: +REGADENOSON 0.4 MG/5 ML SYR ONE
--- NOTE | 2019-02-28 13:11 | RADIOLOGY IMAGING REPORT ---
FACILITY: [facility] [place] PATIENT NAME: Jaspreet Sosa : 1970 MR: [id number] V: [id number] EXAM DATE: ORDERING PHYSICIAN: RANI GERONIMO TECHNOLOGIST: Location: [facility] Patient: Jaspreet Sosa : 1970 Visit/Account:[id number] Date of Sevice: 02/28/2019 EXAMINATION: Single isotope SPECT imaging with regadenoson infusion and gated SPECT imaging. DATE OF EXAMINATION: 02/28/2019. DATE OF INTERPRETATION: 02/28/2019. REQUESTING PHYSICIAN: RANI GERONIMO. INDICATION: The patient is a 48-year-old male evaluated for hypertension. PROCEDURE: After informed consent the patient received an intravenous injection of 12.2 mCi of Tc-99 m sestamibi followed at an appropriate time interval by rest imaging. The patient then subsequently received an intravenous infusion of 0.4 mg of regadenoson per protocol without complication. Resting heart rate was 78 bpm with a peak heart rate of 102 bpm. Blood pressure at rest was 119 / 65 and fo llowing infusion was 119 / 65. Baseline EKG demonstrates sinus rhythm with diffuse T-wave inversions . There were no EKG changes of ischemia following infusion. Symptoms were nonspecific. The patient then received an intravenous injection of 29.9 mCi of Tc-99m sestamibi followed by stress imaging. RAW DATA: Examination of the summed raw data revealed a good quality study. MYOCARDIAL PERFUSION: The tomographic images demonstrate normal myocardial perfusion with no evidenc e of infarct or ischemia. There is no TID. GATED IMAGES: The gated images demonstrate normal ejection fraction 69% with normal wall motion and thickening. IMPRESSION: 1. Nondiagnostic Lexiscan stress ECG 2. Normal myocardial perfusion scan. 3. Normal LV systolic function; LVEF 69%. 4. Based on the results of this exam, the patient appears to be at low risk for future cardiovascular events. Report Dictated By: Kraig Marsh at 02/28/2019 1:02 PM Report E-Signed By: Kraig Marsh at 02/28/2019 1:05 PM WSN:[id number]
== END ==
LOC: NUC 00:37
PROVIDERS: ATTEND Internal Medicine
DX: F10.239 Alcohol dependence with withdrawal, unspecified (principal); F41.1 Generalized anxiety disorder; I10 Essential (primary) hypertension; F10.11 Alcohol abuse, in remission; R56.9 Unspecified convulsions; R74.8 Abnormal levels of other serum enzymes
CPT/HCPCS: 78452; 93017; A9500; J2785

== ENCOUNTER → 2019-03-21 | Outpatient (CLI) | payer MEDICARE, MEDICAID ==
[~2019-03-21] MED LIST changes: +GABA-533 PO; -REGADENOSON 0.4 MG/5 ML SYR ONE
--- NOTE | 2019-03-21 14:42 | RADIOLOGY IMAGING REPORT ---
FACILITY: [facility] PATIENT NAME: Jaspreet Sosa : 1970 MR: [id number] V: [id number] EXAM DATE: ORDERING PHYSICIAN: RANI GERONIMO TECHNOLOGIST: Location: [facility] Patient: Jaspreet Sosa : 1970 Visit/Account:[id number] Date of Sevice: 03/21/2019 HAND COMPLETE LEFT Indication: Pain. Comparison: None Available. Findings: 3 views are obtained of the left hand. No acute fracture or dislocation. No focal soft tissue swelling. No acute joint centered abnormality. Minimal changes of osteoarthrit is are seen at the first carpal metacarpal joint and the first metacarpophalangeal joint. IMPRESSION: 1. No acute osseous abnormality of the left hand 2. 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 Report Dictated By: Jack Oliveira at 03/21/2019 2:32 PM Report E-Signed By: Jack Oliveira at 03/21/2019 2:35 PM WSN:[id number]
== END ==
LOC: RAD 13:00
PROVIDERS: ATTEND Internal Medicine
DX: M25.542 Pain in joints of left hand (principal)